=== PATIENT | female | born 1950 | race Caucasian/White ===

== ENCOUNTER 2018-10-31 09:05 | Inpatient (IN) | payer OTHER ==
[2018-10-31] MEDS ORDERED: Lidocaine 2% Inj (20ml) ONE (10:28)
[2018-10-31] MEDS ORDERED: Iohexol 350mgl/ml 50 ML ONE (10:30)
[2018-10-31] MEDS ORDERED: Iodixanol 320 MG/ML 100 ML BOTTLE IV ONE (10:30)
[2018-10-31] MEDS ORDERED: Iodixanol 320 MG/ML 200 ML BOTTLE IV ONE (10:30)
[2018-10-31] MEDS ORDERED: Phenylephrine 10 mg/ml Inj ONE (10:32)
[2018-10-31] MEDS ORDERED: Nitroglycerin 50mg in D5W 0 MG/0 ML BOTTLE IV ONE (10:32)
[2018-10-31] MEDS ORDERED: Midazolam 2 MG/2 ML VIAL ONE ×2 (10:50→10:53)
[2018-10-31] MEDS ORDERED: Sodium Chloride 0.9% 1,000 ML IV SCH (11:35)
[2018-10-31] MEDS ORDERED: DOPamine 400mg/250ml D5W 400 MG/250 ML BAG IV PRN ×2 (12:38→14:27)
[2018-10-31] MEDS ORDERED: Sodium Chloride 0.9% 1,000 ML IV STA (12:38)
[2018-10-31 12:59] LABS: BASO # 0.02 K/mm3 (0.0-2.0); BASO % 0.3 % (0.0-3.0); EOS # 0.1 (0.0-0.7); EOS % 1.5 % (1.5-5.0); GRAN # 4.34 (1.4-6.5); GRAN % 57.9 % (50.0-68.0); LYMPH # 2.6 (1.2-3.4); LYMPH % 35.2 % (22.0-35.0); MEAN CELL VOLUME 86.9 fl (80.0-105.0); MEAN CORPUSCULAR HEMOGLOBIN 28.7 pg (25.0-35.0); MEAN PLATELET VOLUME 8.7 fl (7.0-11.0); MONO # 0.4 (0.1-0.6); MONO % 5.1 % (1.0-6.0); RBC 3.83 10^6/uL (3.5-6.1); RED CELL DISTRIBUTION WIDTH 12.5 % (11.5-14.5); WHITE BLOOD COUNT 7.5 10^3/uL (4.5-11.0)
[2018-10-31 13:13] LABS: ALB/GLOB RATIO 1.1 (1.1-1.8); ALBUMIN 3.2 g/dL (3.0-4.8); ALT/SGPT 24 U/L (7-56); AST/SGOT 22 U/L (14-36); BLOOD UREA NITROGEN 10 mg/dL (7-21); GFR NON-AFRICAN AMERICAN > 60
--- NOTE | 2018-10-31 13:13 | PCM.RRT ---
VAT OVERHAULER Nurse Assessment - Situation Date: 10/31/18 Time VAT OVERHAULER was called: 12:24 VAT OVERHAULER Responder Arrival Time: 12:28 VAT OVERHAULER Location:: [address] [place] [address] Room Number: [id number] VAT OVERHAULER Reason for Call: Chest Pain, Bradycardia, Looks Sicker VAT OVERHAULER Called By: RN - IV IV Inserted during VAT OVERHAULER?: Yes IV Fluids Initiated During VAT OVERHAULER?: .9NS 1000 Bolus - Respiratory Oxygen Delivery Method: Nasal Cannula @L/min Oxygen Flow Rate: 2 Received Nebulizer Treatments:: No Was the Patient Ventilated with Bag/Mask 100% O2?: No Secretions Suctioned?: No Was the Patient Intubated?: No Was the Patient Placed on a Ventilator?: No - Medication Medications Administered During VAT OVERHAULER: Dopamine 2.5 mcg/kg/min - Diagnostic Test Ordered EKG: Yes Chest X-Ray: No CT Scan: No - Stat Labs Ordered VAT OVERHAULER Stat Labs Ordered: CBC, BMP, TROPONIN VAT OVERHAULER Other Labs Ordered: Mg/Phos CPR started during VAT OVERHAULER?: No - Vital Signs Vital Sign: Rapid Response Vital Sign Blood Pressure 67/38 Pulse Rate 39 Respiratory Rate 22 Temperature 98 F Oxygen Saturation 97 - Finger Stick Blood Glucose Finger Stick Blood Glucose: 114 - Sepsis Screen Part 1 Sepsis Screen Part 1: Hypotensive - Time VAT OVERHAULER Ended Time VAT OVERHAULER Ended: 12:52 - Vital Signs at end of VAT OVERHAULER Vital Signs at end of VAT OVERHAULER: Rapid Response End Vital Sign Blood Pressure 103/60 Pulse Rate 65 Respiratory Rate 18 Temperature 98.0 F - Recommendations Notifications: Attending Physician, Consultations I.Reason for VAT OVERHAULER - A) Acute Change in Patient: (Select all that apply): Acute change in heart rate less than 50 or greater than 120 - Neurological Status (Select all that apply): Alert, Responsive, Lethargic - Respiratory Oxygen Delivery Method: Nasal Cannula @L/min Oxygen Flow Rate: 2 - Constitutional Appears: Non-toxic, No Acute Distress - Head Head Exam: ATRAUMATIC, NORMAL INSPECTION, NORMOCEPHALIC - Eyes Eye Exam: EOMI, Normal appearance - Respiratory Exam Respiratory Exam: Clear to Ausculation Bilateral, NORMAL BREATHING PATTERN. absent: Prolonged Expiratory Phase, Rales, Rhonchi, Wheezes, Respiratory Distress, Stridor - Cardiovascular Exam Cardiovascular Exam: RRR, +S1, +S2 - GI/Abdominal Exam GI & Abdominal Exam: Soft, Normal Bowel Sounds. absent: Distended, Firm, Guarding, Tenderness Additional comments: no signs of hemmorhage at cath site - Neurological Exam Neurological Exam: Alert, Awake, Oriented x3 Plan - Assessment of Findings&Treatment Plan Elijah Reyes, PGY-1 VAT OVERHAULER note for Hospitalist Service S: 67 F s/p catheterization by Dr. Norman this morning. Placement of LYNNETTE to mid LAD. VAT OVERHAULER was called at 12:24 pm due to chest pain and sinus bradycardia on telemetry with HR into 40s with a sinus pause of ~2.7 seconds. Upon initial evaluation immediately thereafter, patient appeared uncomfortable. Patient reported chest pain and diffuse abdominal pain. Denies shortness of breath, leg pain, nausea, vomiting, headache and dizziness. O: BP 67/38, HR 42, 97% on 2 L NC RRR + S1S2 Lungs CTA b/l Randome glucose was 114. A&P: Repeat vitals showed improvement to 105/68, breathing 94% on room air, HR 65. Stat Troponin, CBC, CMP, EKG, 1 L bolus of NS were ordered as well as Dopamine 2.5 mcg/hr drip was ordered. Will continue to monitor. Patient is hemodynamically stable at this time. ICU was called and Dr. Sherine Crawley came to evaluate patient. Dr. Norman was contacted and was in agreement with orders as well. Patient seen, case reviewed and plan approved by Dr. Burdick.
[2018-10-31 13:23] LABS: TROPONIN I < 0.01 ng/mL
--- NOTE | 2018-10-31 13:23 | CARDCATH ---
PROCEDURE DATE: 10/31/2018 HISTORY: The patient is a 67-year-old woman with multiple cardiac risk factors including diabetes mellitus who presents with multivessel CAD. She underwent cardiac catheterization at [facility] with Dr. Lopez and found to have 80-90 percent stenoses in the borderline proximal/mid LAD. She was transferred here for PTCA. PROCEDURE: Coronary arteriography followed by PTCA and stent of an LAD. The right femoral artery was cannulated with 6-Albanian sheath and there were no complications. I performed moderate sedation which included the presence of an independent trained observer that assisted in monitoring the patient's level of consciousness and physiologic status. After administration of Versed and fentanyl, my intra service time was 30 minutes. The findings on catheterization revealed a right dominant circulation. The RCA revealed an eccentric 60 percent stenosis in its proximal/midportion. The LAD revealed a 90 percent stenosis just after the takeoff of the septal interactive producer. The patient was started on intravenous Angiomax on the fluoroscopic guide, the guiding catheter was placed in the ostium of the left main artery. An 0.014 ATW wire was used to cross the lesion. A 2.5 x 12 mm drug-eluting stent was placed and deployed at 14 ounces of pressure. After balloon deflation and removal, repeat coronary arteriography revealed an excellent result with no residual stenosis and ЕКАТЕРИНА III flow. Angio-Seal was used to close the femoral artery site. The patient tolerated the procedure well. In summary, the procedure was successful PTCA and stent of an LAD lesion with a drug-eluting stent. Cardiac catheterization reveals two-vessel CAD. Given these findings, the patient will need to remain on aspirin indefinitely and Plavix for at least a year and undergo a strict cardiac risk reduction program. If the patient is stable, she will be transferred back to [facility] under the care of Dr. Lopez at approximately 5 o'clock. Dorian Norman MD
[2018-10-31] MEDS: Sodium Chloride 0.9% 1,000 ML IV SCH ×2 (13:35→23:12)
--- NOTE | 2018-10-31 14:26 | CARD ---
APPROVED REPORT Date of service: 10/31/2018 EKG Measurement Heart [id number] <Conclusion> Normal sinus rhythm Normal ECG
[2018-10-31] MEDS ORDERED: Iohexol 350 MG/100 ML VIAL ONE (14:40)
--- NOTE | 2018-10-31 14:52 | PCM.RRT ---
REAL ESTATE ATTORNEY Nurse Assessment - Situation Date: 10/31/18 Time REAL ESTATE ATTORNEY was called: 14:14 REAL ESTATE ATTORNEY Responder Arrival Time: 14:18 REAL ESTATE ATTORNEY Location:: [address] [place] [address] Room Number: [id number] REAL ESTATE ATTORNEY Reason for Call: Chest Pain, Hypotension, Change in Mental Status, Looks Sicker REAL ESTATE ATTORNEY Called By: RN - IV IV Inserted during REAL ESTATE ATTORNEY?: No IV Fluids Initiated During REAL ESTATE ATTORNEY?: .9NS 1000 Bolus - Respiratory Oxygen Delivery Method: Nasal Cannula @L/min Oxygen Flow Rate: 2 Received Nebulizer Treatments:: No Was the Patient Ventilated with Bag/Mask 100% O2?: No Secretions Suctioned?: No Was the Patient Intubated?: No Was the Patient Placed on a Ventilator?: No - Medication Medications Administered During REAL ESTATE ATTORNEY: Dopamine 2mcg/kg/min - Diagnostic Test Ordered EKG: No Chest X-Ray: No CT Scan: Yes Other Diagnostic Test Ordered: AB/Pelvis R/O bleed - Stat Labs Ordered REAL ESTATE ATTORNEY Other Labs Ordered: Type & Cross CPR started during REAL ESTATE ATTORNEY?: No - Vital Signs Vital Sign: Rapid Response Vital Sign Blood Pressure 67/40 Pulse Rate 67 Respiratory Rate 22 Temperature 98.2 F Oxygen Saturation 97 - Finger Stick Blood Glucose Finger Stick Blood Glucose: 114 - Sepsis Screen Part 1 Sepsis Screen Part 1: Hypotensive - Time REAL ESTATE ATTORNEY Ended Time REAL ESTATE ATTORNEY Ended: 14:29 - Vital Signs at end of REAL ESTATE ATTORNEY Vital Signs at end of REAL ESTATE ATTORNEY: Rapid Response End Vital Sign Blood Pressure 123/74 Pulse Rate 134 Respiratory Rate 24 Temperature 98 F O2 Sat by Pulse Oximetry 95 - Recommendations Notifications: Attending Physician, Consultations - Respiratory Oxygen Delivery Method: Nasal Cannula @L/min Oxygen Flow Rate: 2 - Constitutional Appears: Non-toxic, No Acute Distress - Head Head Exam: ATRAUMATIC, NORMAL INSPECTION, NORMOCEPHALIC - Eyes Eye Exam: EOMI, Normal appearance - Respiratory Exam Respiratory Exam: Chest Wall Tenderness, Clear to Ausculation Bilateral, NORMAL BREATHING PATTERN. absent: Rales, Rhonchi, Wheezes - Cardiovascular Exam Cardiovascular Exam: Tachycardia, REGULAR RHYTHM, +S1, +S2 - GI/Abdominal Exam GI & Abdominal Exam: Firm (RLQ>LLQ), Guarding, Tenderness. absent: Rigid, Soft, Rebound - Neurological Exam Neurological Exam: Alert, Awake, Oriented x3 Plan - Assessment of Findings&Treatment Plan Elijah Reyes, PGY-1 REAL ESTATE ATTORNEY note for Hospitalist Service S: 67 F s/p catheterization by Dr. Norman this morning. Placement of LYNNETTE to mid LAD. REAL ESTATE ATTORNEY was called at 2:14 pm due to worsened abdominal pain and hypotension 64/47. Upon initial evaluation immediately thereafter, patient appeared uncomfortable. Patient denied chest pain but reported diffuse abdominal pain. Denies shortness of breath, leg pain, headache and dizziness. Patient states that abdominal pain has gotten worse. Patient was AAOx3. O: BP 64/47, HR 74, 97% on 2 L NC RRR + S1S2 Lungs CTA b/l Abdomen distended and tender RLQ>LLQ, ecchymosies in LLQ A&P: Stat Type and Cross and Atropine were ordered. Currently on dopamine drip. CT scan with IV contrast was ordered. Repeat vitals showed improvement to 132/86, breathing 94% on room air, HR 65. I accompanied patient down to CT scan and afterward directly to ICU for monitoring. Patient is hemodynamically stable at this time. Tachycardiac at [address] scan room. Patient set to be transferred to ICU for continued hemodynamic monitoring. Dr. Norman was contacted and was in agreement with orders as well. Patient seen, case reviewed and plan approved by Dr. Burdick.
--- NOTE | 2018-10-31 15:11 | CT ---
Date of service: 10/31/2018 PROCEDURE: CT Abdomen and Pelvis with contrast HISTORY: R/O bleed COMPARISON: None. TECHNIQUE: Contrast dose: 100 cc of Omni 350 Radiation dose: Total exam DLP = 460.5 mGy-cm. This CT exam was performed using one or more of the following dose reduction techniques: Automated exposure control, adjustment of the mA and/or kV according to patient size, and/or use of iterative reconstruction technique. FINDINGS: LOWER THORAX: Unremarkable. LIVER: Unremarkable. No gross lesion or ductal dilatation. GALLBLADDER AND BILE DUCTS: Gallstones PANCREAS: Unremarkable. No gross lesion or ductal dilatation. SPLEEN: Unremarkable. ADRENALS: Unremarkable. No mass. KIDNEYS AND URETERS: Unremarkable. No hydronephrosis. No solid mass. VASCULATURE: There is active contrast extravasation from the right femoral artery. This can be seen on coronal image 55 series 601 and on axial images 146 through 156 series 3. There is a large pelvic hematoma measuring 12 cm height by 10 cm AP x 6.5 cm wide. The bladder is displaced to the left. The hematoma does not extend into the retroperitoneal space above the level of the iliac crests. The findings were discussed with Dr. Norman at 3 p.m. BOWEL: Unremarkable. No obstruction. No gross mural thickening. APPENDIX: Normal appendix. PERITONEUM: Unremarkable. No free fluid. No free air. LYMPH NODES: Unremarkable. No enlarged lymph nodes. BLADDER: Unremarkable. REPRODUCTIVE: Unremarkable. BONES: No acute fracture. OTHER FINDINGS: None. IMPRESSION: Active hemorrhage from right femoral artery with large pelvic hematoma. There is no extension into the retroperitoneal space above the level of the iliac crests.
[2018-10-31] MEDS ORDERED: Morphine 4 mg/ml ISec IVP ONE (15:15)
[2018-10-31 15:38] LABS: HEMOGLOBIN 10.4 g/dL (12.0-16.0); MEAN CELL VOLUME 86.5 fl (80.0-105.0); MEAN CORPUSCULAR HEMOGLOBIN 28.7 pg (25.0-35.0); MEAN CORPUSCULAR HGB CONC 33.2 g/dl (31.0-37.0); MEAN PLATELET VOLUME 8.9 fl (7.0-11.0); RBC 3.62 10^6/uL (3.5-6.1); RED CELL DISTRIBUTION WIDTH 12.5 % (11.5-14.5)
--- NOTE | 2018-10-31 16:32 | CP.PCM.CON ---
<Harris Gracia L - Last Filed: 10/31/18 17:22> History of Present Illness - History of Present Illness History of Present Illness: Resident Consult Note for ICU Patient is a 67 year old female with past medical history of HTN, DM transferred from [facility] after a diagnostic cath for interventional procedure at [place]. Patient had a drug eluting stent placed in LAD by Dr. Norman and was being monitored on telemetry. Rapid response was called due to patient comp laining of chest pain and nausea. Patient was bradycardic in the 40s with SBP in the 60s. EKG was done which showed normal sinus rhythm. Dr. Norman was made aware and patient was started on low dose dopamine and given fluid bolus. Patient's pain subsided and vital signs improved. One hour later another rapid response was called, patient was hypotensive again complaining of pain in the right abdominal groin area. CT abd/pelvis was ordered which showed active hemorrhage from right femoral artery with large pelvic hematoma. Patient was admitted to ICU for monitoring and treatment. Currently, patient states that her pain is improved. She offers no other complaints at this time. Denies fevers, chills, headache, dizziness, chest pain, shortness of breath, diarrhea. PMH: HTN, DM PSH: Carpal tunnel surgery 6 months prior SHx: Denies tobacco use, ETOH use, retired nurses aid FHx: Father ( due to ND at 47 yo) Allergies: NKDA Home meds: Cozaar 100mg PO daily, Metoprolol sucinate 50 mg PO daily, Metformin 500 BID PO daily, Amlodipine 5 mg PO daily, Aspirin 81 mg PO daily, Zantac PRN PMD: Dr. Ortega Review of Systems - Review of Systems All systems: reviewed and no additional remarkable complaints except (as stated in HPI) Past Patient History - Past Medical History & Family History Past Medical History?: Yes - Past Social History Smoking Status: Never Smoked - CARDIAC Hx Hypertension: Yes - ENDOCRINE/METABOLIC Hx Diabetes Mellitus Type 2: Yes - MUSCULOSKELETAL/RHEUMATOLOGICAL Hx Falls: No - PSYCHIATRIC Hx Substance Use: No - SURGICAL HISTORY Hx Hysterectomy: Yes Other/Comment: right hand surgery 2007 - ANESTHESIA Hx Anesthesia: Yes Hx Anesthesia Reactions: No Hx Malignant Hyperthermia: No Meds Allergies/Adverse Reactions: Allergies Allergy/AdvReac Type Severity Reaction Status Date / Time No Known Allergies Allergy Unverified 10/29/18 14:15 - Medications Medications: Current Medications Sodium Chloride (Sodium Chloride 0.9%) 1,000 mls @ 100 mls/hr IV .Q10H FANY Last Admin: 10/31/18 13:35 Dose: 100 mls/hr Dopamine HCl/Dextrose (Dopamine 400mg/250ml D5w) 400 mg in 250 mls @ 4.915 mls/hr IV .Q24H PRN; Protocol PRN Reason: TITRATE PER MD ORDER Morphine Sulfate (Morphine) 4 mg IVP Q4H ONE Stop: 10/31/18 15:16 Physical Exam - Constitutional Appears: No Acute Distress - Head Exam Head Exam: ATRAUMATIC, NORMOCEPHALIC - Eye Exam Eye Exam: EOMI, Normal appearance, PERRL - ENT Exam ENT Exam: Mucous Membranes Dry - Neck Exam Neck exam: Positive for: Normal Inspection. Negative for: Lymphadenopathy, Tenderness, Thyromegaly - Respiratory Exam Respiratory Exam: Clear to Auscultation Bilateral, NORMAL BREATHING PATTERN. absent: Rales, Rhonchi, Wheezes, Respiratory Distress, Stridor - Cardiovascular Exam Cardiovascular Exam: REGULAR RHYTHM, +S1, +S2. absent: Systolic Murmur - GI/Abdominal Exam GI & Abdominal Exam: Distended, Guarding, Hypoactive Bowel Sounds, Soft, Tenderness. absent: Rebound, Rigid Additional comments: diffuse abdominal tenderness with hematoma in LLQ dressing C/D/I - Exam Additional comments: broussard in place - Extremities Exam Extremities exam: Positive for: normal capillary refill, pedal pulses present. Negative for: calf tenderness, pedal edema - Neurological Exam Neurological exam: Alert, CN II-XII Intact, Oriented x3 - Psychiatric Exam Psychiatric exam: Normal Affect, Normal Mood - Skin Skin Exam: Dry, Intact, Normal Color, Warm Results - Vital Signs Recent Vital Signs: Last Vital Signs Temp 98.3 F 10/31/18 16:20 Pulse 109 H 10/31/18 16:20 Resp 20 10/31/18 16:20 BP 120/77 10/31/18 16:20 Pulse Ox - Labs Result Diagrams: 10/31/18 15:35 10/31/18 12:50 Labs: Laboratory Results - last 24 hr 10/31/18 10/31/18 10/31/18 12:27 12:50 12:50 WBC 7.5 RBC 3.83 Hgb 11.0 L Hct 33.3 L MCV 86.9 MCH 28.7 MCHC 33.0 RDW 12.5 Plt Count 238 MPV 8.7 Gran % 57.9 Lymph % (Auto) 35.2 H Wetzel % (Auto) 5.1 Eos % (Auto) 1.5 Baso % (Auto) 0.3 Gran # 4.34 Lymph # (Auto) 2.6 Wetzel # (Auto) 0.4 Eos # (Auto) 0.1 Baso # (Auto) 0.02 Sodium 137 Potassium 4.0 Chloride 110 H Carbon Dioxide 24 Anion Gap 7 L BUN 10 Creatinine 0.6 L Est GFR ( Amer) > 60 Est GFR (Non-Af Amer) > 60 POC Glucose (mg/dL) 114 H Random Glucose 132 H Calcium 9.0 Phosphorus 3.5 Magnesium 1.9 Total Bilirubin 0.4 AST 22 ALT 24 Alkaline Phosphatase 60 Troponin I < 0.01 Total Protein 6.0 Albumin 3.2 Globulin 2.8 Albumin/Globulin Ratio 1.1 Blood Type Blood Type Confirm Antibody Screen Crossmatch BBK History Checked 10/31/18 10/31/18 10/31/18 14:18 14:23 14:23 WBC RBC Hgb Hct MCV MCH MCHC RDW Plt Count MPV Gran % Lymph % (Auto) Wetzel % (Auto) Eos % (Auto) Baso % (Auto) Gran # Lymph # (Auto) Wetzel # (Auto) Eos # (Auto) Baso # (Auto) Sodium Potassium Chloride Carbon Dioxide Anion Gap BUN Creatinine Est GFR ( Amer) Est GFR (Non-Af Amer) POC Glucose (mg/dL) 103 Random Glucose Calcium Phosphorus Magnesium Total Bilirubin AST ALT Alkaline Phosphatase Troponin I Total Protein Albumin Globulin Albumin/Globulin Ratio Blood Type Cancelled O POSITIVE Blood Type Confirm Antibody Screen Cancelled Negative Crossmatch See Detail BBK History Checked Cancelled No verified bt 10/31/18 10/31/18 14:45 15:35 WBC 10.0 D RBC 3.62 Hgb 10.4 L Hct 31.3 L MCV 86.5 MCH 28.7 MCHC 33.2 RDW 12.5 Plt Count 250 MPV 8.9 Gran % Lymph % (Auto) Wetzel % (Auto) Eos % (Auto) Baso % (Auto) Gran # Lymph # (Auto) Wetzel # (Auto) Eos # (Auto) Baso # (Auto) Sodium Potassium Chloride Carbon Dioxide Anion Gap BUN Creatinine Est GFR ( Amer) Est GFR (Non-Af Amer) POC Glucose (mg/dL) Random Glucose Calcium Phosphorus Magnesium Total Bilirubin AST ALT Alkaline Phosphatase Troponin I Total Protein Albumin Globulin Albumin/Globulin Ratio Blood Type Blood Type Confirm O POSITIVE Antibody Screen Crossmatch BBK History Checked Assessment & Plan - Assessment and Plan (Free Text) Assessment: Patient is a 67 year old female with past medical history of HTN, DM transferred from [facility], now s/p cath and admitted to ICU for management of bradycardia and hypotension. Found to have active hemorrhage from right femoral artery with large pelvic hematoma. Plan: Neuro: - AAOx3 - maintain normothermia Cardio: - s/p cardiac cath - CT abd/pelvis shows active hemorrhage from right femoral artery with large pelvic hematoma - dopamine drip - NS @ 100 ccs/hr - maintain MAP >65 - hold anticoagulation due to bleed Pulm: - saturating well on 2L NC - maintain SaO2>92% GI: - no active issues - no GI prophylaxis indicated at this time Heme: - s/p 1 unit pRBCs - monitor CBC Q4H - DVT prophylaxis contraindicated due to bleed Renal: - no active issues Endo: - no active issues ID: - afebrile, no leukocytosis Case was discussed and reviewed with attending physician, Dr. Misbah Gracia PGY-1 - Date & Time Date: 10/31/18 Time: 16:31 <Ever Crawley - Last Filed: 11/01/18 14:48> Meds - Medications Medications: Current Medications Aspirin (Aspirin Chewable) 81 mg PO DAILY [facility] Last Admin: 11/01/18 10:28 Dose: 81 mg Clopidogrel Bisulfate (Plavix) 75 mg PO DAILY [facility] Last Admin: 11/01/18 10:28 Dose: 75 mg Sodium Chloride (Sodium Chloride 0.9%) 1,000 mls @ 100 mls/hr IV .Q10H [facility] Last Admin: 11/01/18 07:00 Dose: 100 mls/hr Dopamine HCl/Dextrose (Dopamine 400mg/250ml D5w) 400 mg in 250 mls @ 4.915 mls/hr IV .Q24H PRN; Protocol PRN Reason: TITRATE PER MD ORDER Morphine Sulfate (Morphine) 2 mg IVP Q4H PRN PRN Reason: Pain, severe (8-10) Ondansetron HCl (Zofran Inj) 4 mg IVP Q6H PRN PRN Reason: Nausea/Vomiting Results - Vital Signs Recent Vital Signs: Last Vital Signs Temp 98.4 F 11/01/18 07:00 Pulse 77 11/01/18 08:50 Resp 19 11/01/18 08:50 BP 145/76 11/01/18 08:00 Pulse Ox 100 11/01/18 08:50 - Labs Result Diagrams: 11/01/18 05:30 11/01/18 05:30 Labs: Laboratory Results - last 24 hr 10/31/18 10/31/18 10/31/18 14:23 14:23 14:45 WBC RBC Hgb Hct MCV MCH MCHC RDW Plt Count MPV Gran % Lymph % (Auto) Wetzel % (Auto) Eos % (Auto) Baso % (Auto) Gran # Lymph # (Auto) Wetzel # (Auto) Eos # (Auto) Baso # (Auto) PT INR APTT Sodium Potassium Chloride Carbon Dioxide Anion Gap BUN Creatinine Est GFR ( Amer) Est GFR (Non-Af Amer) Random Glucose Calcium Total Bilirubin AST ALT Alkaline Phosphatase Total Protein Albumin Globulin Albumin/Globulin Ratio Blood Type Cancelled O POSITIVE Blood Type Confirm O POSITIVE Antibody Screen Cancelled Negative Crossmatch See Detail BBK History Checked Cancelled No verified bt 10/31/18 10/31/18 10/31/18 15:35 19:52 23:25 WBC 10.0 D 12.3 H D 10.4 RBC 3.62 4.09 3.78 Hgb 10.4 L 11.9 L 11.1 L Hct 31.3 L 36.0 33.1 L MCV 86.5 88.0 87.6 MCH 28.7 29.1 29.4 MCHC 33.2 33.1 33.5 RDW 12.5 13.0 13.0 Plt Count 250 244 221 MPV 8.9 8.9 9.1 Gran % Lymph % (Auto) Wetzel % (Auto) Eos % (Auto) Baso % (Auto) Gran # Lymph # (Auto) Wetzel # (Auto) Eos # (Auto) Baso # (Auto) PT INR APTT Sodium Potassium Chloride Carbon Dioxide Anion Gap BUN Creatinine Est GFR ( Amer) Est GFR (Non-Af Amer) Random Glucose Calcium Total Bilirubin AST ALT Alkaline Phosphatase Total Protein Albumin Globulin Albumin/Globulin Ratio Blood Type Blood Type Confirm Antibody Screen Crossmatch BBK History Checked 10/31/18 11/01/18 11/01/18 23:25 05:30 05:30 WBC 10.3 RBC 3.73 Hgb 10.8 L Hct 32.5 L MCV 87.1 MCH 29.0 MCHC 33.2 RDW 13.0 Plt Count 205 MPV 9.2 Gran % 68.6 H Lymph % (Auto) 20.9 L Wetzel % (Auto) 9.6 H Eos % (Auto) 0.7 L Baso % (Auto) 0.2 Gran # 7.05 H Lymph # (Auto) 2.1 Wetzel # (Auto) 1.0 H Eos # (Auto) 0.1 Baso # (Auto) 0.02 PT 11.7 INR 1.03 APTT 29.5 Sodium 139 Potassium 3.8 Chloride 112 H Carbon Dioxide 23 Anion Gap 7 L BUN 12 Creatinine 0.6 L Est GFR ( Amer) > 60 Est GFR (Non-Af Amer) > 60 Random Glucose 93 Calcium 8.7 Total Bilirubin 0.6 AST 27 ALT 27 Alkaline Phosphatase 54 Total Protein 5.6 L Albumin 2.9 L Globulin 2.7 Albumin/Globulin Ratio 1.1 Blood Type Blood Type Confirm Antibody Screen Crossmatch BBK History Checked Addendum Addendum: 10/31/18 16:47 MICU Attending Addendum for 10/31: Patient seen and examined at bedside on 10/31; Case discussed on rounds with housestaff; Agree resident with note above with the following additions/exceptions: 67Fwith HTN, DM transferred from [facility] for ACS s/p cath with stent to LAD complicated by pain at cath insertion site. Further evaluation with CT shows extrav of blood from right fem artery resulting in large hematoma. Dr Norman on board managing Dr. Foss (IR) at bedside applying dressing to tamponade / compress site Will f/u CBC q 4 hours Transfuse if HB drops significantly or below 8 Will need to cont dual antiplat as per cardio given stent placement Rest of care as above Ever Crawley MD Pulmonary Critical Care and Sleep Medicine
[2018-10-31] MEDS ORDERED: Morphine 2 mg/ml ISec IVP PRN (18:07)
--- NOTE | 2018-10-31 19:11 | CP.PCM.CON ---
<Davida Sunshine - Last Filed: 10/31/18 19:31> History of Present Illness - History of Present Illness History of Present Illness: Surgery Consult Note for Dr. Stubbs Consulted for: Abdominal hematoma 67 F w/ PMHx significant for hypertension and DM who was transferred to [facility] from [facility] today for a PTCA with drug eluting stent placement in LAD by cardiology. Patient was admitted to telemetry for further monitoring. Rapid response was called for chest pain, sinus bradycardia with HR in the 40s and hypotension. Patient was given a fluid bolus and started on dopamine drip, after which chest pain resolved and hypotension improved. Another [employer] was called again this afternoon for RLQ abdominal and right groin pain. CT A/P was obtained and pt was transferred to ICU when hemodynamically stabilized. CT A/P resulted active hemorrhage from right femoral artery with large pelvic hematoma, no extension into the retroperitoneal space above the level of the iliac crests. Blood transfusion was started, patient became hemodynamically stable, dopamine drip was discontinued, and surgery consult was placed. At time of examination, patient is hemodynamically stable with the unit of PRBC's currently tranfusing. She states that abdominal pain is improved since onset, reports one episode of nausea but no vomiting, not currently nauseated. Denies any chest pain, SOB, palpitations, or back pain. She denies fever, chills, cough, congestion, NORRIS, dizziness. No other acute complaints at this time. PMH: HTN, DM, CAD PSH: PTCA with drug eluting stent placement in LAD (10/31/2018), hysterectomy, carpal tunnel (2018) ALL: NKDA SocialHx: Denies tobacco, alcohol, and recreational drug use. FH: Father- [place] at 45y/o () Review of Systems - Review of Systems All systems: reviewed and no additional remarkable complaints except (as per HPI) Past Patient History - Past Medical History & Family History Past Medical History?: Yes Past Family History: Reviewed and not pertinent - Past Social History Smoking Status: Never Smoked Alcohol: None Drugs: Denies Home Situation {Lives}: With Family - CARDIAC Hx Hypertension: Yes - ENDOCRINE/METABOLIC Hx Diabetes Mellitus Type 2: Yes - MUSCULOSKELETAL/RHEUMATOLOGICAL Hx Falls: No - PSYCHIATRIC Hx Substance Use: No - SURGICAL HISTORY Hx Hysterectomy: Yes Other/Comment: right hand surgery 2007 - ANESTHESIA Hx Anesthesia: Yes Hx Anesthesia Reactions: No Hx Malignant Hyperthermia: No Meds Allergies/Adverse Reactions: Allergies Allergy/AdvReac Type Severity Reaction Status Date / Time No Known Allergies Allergy Unverified 10/29/18 14:15 - Medications Medications: Current Medications Sodium Chloride (Sodium Chloride 0.9%) 1,000 mls @ 100 mls/hr IV .Q10H FANY Last Admin: 10/31/18 13:35 Dose: 100 mls/hr Dopamine HCl/Dextrose (Dopamine 400mg/250ml D5w) 400 mg in 250 mls @ 4.915 mls/hr IV .Q24H PRN; Protocol PRN Reason: TITRATE PER MD ORDER Morphine Sulfate (Morphine) 2 mg IVP Q4H PRN PRN Reason: Pain, severe (8-10) Ondansetron HCl (Zofran Inj) 4 mg IVP Q6H PRN PRN Reason: Nausea/Vomiting Physical Exam - Constitutional Appears: Well, Non-toxic, No Acute Distress - Head Exam Head Exam: ATRAUMATIC, NORMOCEPHALIC - Eye Exam Eye Exam: Normal appearance. absent: Conjunctival injection, Scleral icterus - ENT Exam ENT Exam: Mucous Membranes Moist, Normal Oropharynx - Respiratory Exam Respiratory Exam: NORMAL BREATHING PATTERN (on NC supplemental O2). absent: Accessory Muscle Use, Respiratory Distress - Cardiovascular Exam Cardiovascular Exam: RRR - GI/Abdominal Exam GI & Abdominal Exam: Distended (moderately), Soft, Tenderness (severe RLQ tenderness). absent: Guarding, Rebound Additional comments: RLQ fullness No finn-umbilical or flank ecchymosis - Extremities Exam Extremities exam: Positive for: pedal pulses present. Negative for: calf tenderness, pedal edema Additional comments: right groin with pressure dressing intact with no saturation, no surrounding drainage or erythema - Neurological Exam Neurological exam: Alert, Oriented x3 - Psychiatric Exam Psychiatric exam: Normal Affect, Normal Mood - Skin Skin Exam: Dry, Normal Color, Warm Results - Vital Signs Recent Vital Signs: Last Vital Signs Temp 98.4 F 10/31/18 17:23 Pulse 92 H 10/31/18 19:05 Resp 19 10/31/18 19:05 BP 122/78 10/31/18 19:05 Pulse Ox 100 10/31/18 19:05 - Labs Result Diagrams: 10/31/18 15:35 10/31/18 12:50 Labs: Laboratory Results - last 24 hr 10/31/18 10/31/18 10/31/18 12:27 12:50 12:50 WBC 7.5 RBC 3.83 Hgb 11.0 L Hct 33.3 L MCV 86.9 MCH 28.7 MCHC 33.0 RDW 12.5 Plt Count 238 MPV 8.7 Gran % 57.9 Lymph % (Auto) 35.2 H Gray % (Auto) 5.1 Eos % (Auto) 1.5 Baso % (Auto) 0.3 Gran # 4.34 Lymph # (Auto) 2.6 Gray # (Auto) 0.4 Eos # (Auto) 0.1 Baso # (Auto) 0.02 Sodium 137 Potassium 4.0 Chloride 110 H Carbon Dioxide 24 Anion Gap 7 L BUN 10 Creatinine 0.6 L Est GFR ( Amer) > 60 Est GFR (Non-Af Amer) > 60 POC Glucose (mg/dL) 114 H Random Glucose 132 H Calcium 9.0 Phosphorus 3.5 Magnesium 1.9 Total Bilirubin 0.4 AST 22 ALT 24 Alkaline Phosphatase 60 Troponin I < 0.01 Total Protein 6.0 Albumin 3.2 Globulin 2.8 Albumin/Globulin Ratio 1.1 Blood Type Blood Type Confirm Antibody Screen Crossmatch BBK History Checked 10/31/18 10/31/18 10/31/18 14:18 14:23 14:23 WBC RBC Hgb Hct MCV MCH MCHC RDW Plt Count MPV Gran % Lymph % (Auto) Gray % (Auto) Eos % (Auto) Baso % (Auto) Gran # Lymph # (Auto) Gray # (Auto) Eos # (Auto) Baso # (Auto) Sodium Potassium Chloride Carbon Dioxide Anion Gap BUN Creatinine Est GFR ( Amer) Est GFR (Non-Af Amer) POC Glucose (mg/dL) 103 Random Glucose Calcium Phosphorus Magnesium Total Bilirubin AST ALT Alkaline Phosphatase Troponin I Total Protein Albumin Globulin Albumin/Globulin Ratio Blood Type Cancelled O POSITIVE Blood Type Confirm Antibody Screen Cancelled Negative Crossmatch See Detail BBK History Checked Cancelled No verified bt 10/31/18 10/31/18 14:45 15:35 WBC 10.0 D RBC 3.62 Hgb 10.4 L Hct 31.3 L MCV 86.5 MCH 28.7 MCHC 33.2 RDW 12.5 Plt Count 250 MPV 8.9 Gran % Lymph % (Auto) Gray % (Auto) Eos % (Auto) Baso % (Auto) Gran # Lymph # (Auto) Gray # (Auto) Eos # (Auto) Baso # (Auto) Sodium Potassium Chloride Carbon Dioxide Anion Gap BUN Creatinine Est GFR ( Amer) Est GFR (Non-Af Amer) POC Glucose (mg/dL) Random Glucose Calcium Phosphorus Magnesium Total Bilirubin AST ALT Alkaline Phosphatase Troponin I Total Protein Albumin Globulin Albumin/Globulin Ratio Blood Type Blood Type Confirm O POSITIVE Antibody Screen Crossmatch BBK History Checked Assessment & Plan - Assessment and Plan (Free Text) Assessment: 67F s/p percutaneous cardiac catheterization with placement of drug eluting stent in the LAD, with post-procedure intra-abdominal hemorrhage, currently stable Plan: Repeat serial H/H Monitor BP and HR closely Monitor UOP closely Administer PRBC as needed PRN pain and nausea medication NPO Bed rest F/U cardiology and ICU recommendations No indication for surgical intervention at this time but will monitor very closely Discussed with Dr. Enoc Sunshine, PGY2 <Anurag Stubbs - Last Filed: 11/05/18 07:55> Results - Vital Signs Recent Vital Signs: Last Vital Signs Temp 99.1 F 11/04/18 08:59 Pulse 80 11/04/18 09:04 Resp 19 11/04/18 08:00 BP 139/76 11/04/18 09:04 Pulse Ox 97 11/04/18 08:00 - Labs Result Diagrams: 11/04/18 05:20 11/04/18 05:20 Assessment & Plan - Assessment and Plan (Free Text) Plan: Patient was seen, examined and evaluated by me. I agree with resident's assessment and plan.
[2018-10-31 19:54] LABS: HEMOGLOBIN 11.9 g/dL (12.0-16.0); MEAN CORPUSCULAR HEMOGLOBIN 29.1 pg (25.0-35.0); MEAN CORPUSCULAR HGB CONC 33.1 g/dl (31.0-37.0); MEAN PLATELET VOLUME 8.9 fl (7.0-11.0); RBC 4.09 10^6/uL (3.5-6.1); WHITE BLOOD COUNT 12.3 10^3/uL (4.5-11.0)
[2018-10-31 23:15] VITALS: BMI 29.2
[2018-10-31] MEDS ORDERED: Influenza Vaccine 60 mcg/0.5 mL SYR (4YR UP) IM ONE (23:15)
[2018-10-31] MEDS ORDERED: Pneumococcal 23-Valent Vaccine IM ONE (23:15)
[2018-11-01 00:05] LABS: INR 1.03; PARTIAL THROMBOPLASTIN TIME 29.5 Seconds (25.1-36.5); PROTHROMBIN TIME 11.7 SECONDS (9.4-12.5)
[2018-11-01 00:11] LABS: HEMOGLOBIN 11.1 g/dL (12.0-16.0); MEAN CELL VOLUME 87.6 fl (80.0-105.0); MEAN CORPUSCULAR HEMOGLOBIN 29.4 pg (25.0-35.0); MEAN CORPUSCULAR HGB CONC 33.5 g/dl (31.0-37.0); MEAN PLATELET VOLUME 9.1 fl (7.0-11.0); RBC 3.78 10^6/uL (3.5-6.1); WHITE BLOOD COUNT 10.4 10^3/uL (4.5-11.0)
[2018-11-01] MEDS: Sodium Chloride 0.9% 1,000 ML IV SCH ×2 (07:00→23:00)
[2018-11-01 07:07] LABS: BASO # 0.02 K/mm3 (0.0-2.0); BASO % 0.2 % (0.0-3.0); EOS # 0.1 (0.0-0.7); EOS % 0.7 % (1.5-5.0); GRAN # 7.05 (1.4-6.5); GRAN % 68.6 % (50.0-68.0); HEMOGLOBIN 10.8 g/dL (12.0-16.0); LYMPH # 2.1 (1.2-3.4); LYMPH % 20.9 % (22.0-35.0); MEAN CELL VOLUME 87.1 fl (80.0-105.0); MEAN CORPUSCULAR HGB CONC 33.2 g/dl (31.0-37.0); MEAN PLATELET VOLUME 9.2 fl (7.0-11.0); MONO % 9.6 % (1.0-6.0); RBC 3.73 10^6/uL (3.5-6.1); WHITE BLOOD COUNT 10.3 10^3/uL (4.5-11.0)
[2018-11-01 07:17] LABS: ALB/GLOB RATIO 1.1 (1.1-1.8); ALBUMIN 2.9 g/dL (3.0-4.8); ALT/SGPT 27 U/L (7-56); AST/SGOT 27 U/L (14-36); BLOOD UREA NITROGEN 12 mg/dL (7-21); CALCIUM 8.7 mg/dL (8.4-10.5); GFR NON-AFRICAN AMERICAN > 60
--- NOTE | 2018-11-01 09:30 | CP.PCM.PN ---
<Terrance Ndiaye - Last Filed: 11/01/18 09:25> Subjective - Date & Time of Evaluation Date of Evaluation: 11/01/18 Time of Evaluation: 09:25 - Subjective Subjective: Surgery Progress Note- Dr. Stubbs Patient seen and examined at bedside. patient is s/p perc cardiac cath access from Right fem complicated by intra-abdominal hemorrhage. Transfused 1u PRBC and pressure dressing applied to left fem. Repeat Hgb 11.9 from 10.4. patient states abdominal pain is improving. denies nausea, vomiting, fevers chills. In ICU AAOx3, moving all 4 extremities, GCS 15, currently hemodynamically normal. Objective - Vital Signs/Intake and Output Vital Signs (last 24 hours): Temp Pulse Resp BP Pulse Ox 98.4 F 77 19 145/76 100 11/01/18 07:00 11/01/18 08:50 11/01/18 08:50 11/01/18 08:00 11/01/18 08:50 Intake and Output: 11/01/18 11/01/18 06:59 18:59 Intake Total 1620 Output Total 750 Balance 870 - Medications Medications: Current Medications Aspirin (Aspirin Chewable) 81 mg PO DAILY FANY Clopidogrel Bisulfate (Plavix) 75 mg PO DAILY [facility] Sodium Chloride (Sodium Chloride 0.9%) 1,000 mls @ 100 mls/hr IV .Q10H FANY Last Admin: 10/31/18 23:12 Dose: 100 mls/hr Dopamine HCl/Dextrose (Dopamine 400mg/250ml D5w) 400 mg in 250 mls @ 4.915 mls/hr IV .Q24H PRN; Protocol PRN Reason: TITRATE PER MD ORDER Morphine Sulfate (Morphine) 2 mg IVP Q4H PRN PRN Reason: Pain, severe (8-10) Ondansetron HCl (Zofran Inj) 4 mg IVP Q6H PRN PRN Reason: Nausea/Vomiting - Labs Labs: 11/01/18 05:30 11/01/18 05:30 PT 11.7 SECONDS (9.4-12.5) 10/31/18 23:25 INR 1.03 10/31/18 23:25 APTT 29.5 Seconds (25.1-36.5) 10/31/18 23:25 - Constitutional Appears: Non-toxic, No Acute Distress - Head Exam Head Exam: ATRAUMATIC - Eye Exam Eye Exam: EOMI. absent: Scleral icterus - ENT Exam ENT Exam: Mucous Membranes Moist - Respiratory Exam Respiratory Exam: NORMAL BREATHING PATTERN. absent: Accessory Muscle Use, Respiratory Distress - Cardiovascular Exam Cardiovascular Exam: +S1, +S2. absent: Bradycardia, Tachycardia - GI/Abdominal Exam GI & Abdominal Exam: Distended, Soft, Tenderness. absent: Firm, Guarding, Rigid Additional comments: mildly distended. No new signs of ecchymosis or erythema pressure dressing applied to right groin - Neurological Exam Neurological Exam: Alert, Awake, Oriented x3 - Psychiatric Exam Psychiatric exam: Normal Affect - Skin Skin Exam: Intact, Warm Assessment and Plan - Assessment and Plan (Free Text) Assessment: 67F s/p perc cardiac cath w/ placement of drug eluting stend in the LAD, complicated w/ intra-abdominal hematoma; s/p 1u PRBC and hemodynamically normal Plan: - trend H/H - continued hemodynamic monitoring - transfuse PRN - serial abd exams - will continue to observe - further recs per Dr. Stubbs surgical attending [facility] PGY2 <Anurag Stubbs - Last Filed: 11/05/18 07:53> Objective - Vital Signs/Intake and Output Vital Signs (last 24 hours): Temp Pulse Resp BP Pulse Ox 99.1 F 80 19 139/76 97 11/04/18 08:59 11/04/18 09:04 11/04/18 08:00 11/04/18 09:04 11/04/18 08:00 - Labs Labs: 11/04/18 05:20 11/04/18 05:20 PT 11.7 SECONDS (9.4-12.5) 10/31/18 23:25 INR 1.03 10/31/18 23:25 APTT 29.5 Seconds (25.1-36.5) 10/31/18 23:25 Assessment and Plan - Assessment and Plan (Free Text) Plan: Patient was seen, examined and evaluated by me. I agree with resident's assessment and plan.
--- NOTE | 2018-11-01 12:29 | CP.CCUPN ---
<Dhruv Duran - Last Filed: 11/01/18 12:25> CCU Subjective - Physician Review Subjective (Free Text): Dhruv Duran, PGY1 ICU Progress Note for Dr. Crawley Patient was seen and examined at bedside this morning. Vital signs stable, afebrile overnight. Patient is AAOx3. She endorses right groin/abdominal pain after the cardiac cath procedure. She says her pain has improved since yesterday, rates it as a dull pain /10. Denies n/v/d, cp, sob, frequency/urgency/dysuria, blurry vision, and headaches. No adverse overnight events. A full 12 point ROS was conducted and unremarkable except as stated above. CCU Objective - Vital Signs / Intake & Output Vital Signs (Last 4 hours): Vital Signs Pulse Resp Pulse Ox 11/01/18 08:50 77 19 100 11/01/18 08:40 91 H 100 11/01/18 08:30 102 H 24 98 Intake and Output (Last 8hrs): Intake & Output 10/31/18 11/01/18 11/01/18 22:59 06:59 14:59 Intake Total 420 1200 Output Total 450 300 Balance -30 900 Weight 65.529 kg 67.222 kg Intake: IV 1200 Left Hand 1200 Blood Product 0 Red Blood Cells Cpd As1 0 Lr Unit [id number] Other 420 Red Blood Cells Cpd As1 20 Lr Unit [id number] Output: Urine 450 300 Urethral (Lawrence) 450 300 Other: Voiding Method Indwelling Catheter # Bowel Movements 0 - Physical Exam Head: Positive for: Atraumatic, Normocephalic Pupils: Positive for: PERRL Extroacular Muscles: Positive for: EOMI Conjunctiva: Positive for: Normal Mouth: Positive for: Moist Mucous Membranes Respiratory/Chest: Positive for: Clear to Auscultation, Good Air Exchange. Negative for: Respiratory Distress, Wheezes, Rales, Retracting, Rhonchi Cardiovascular: Positive for: Regular Rate and Rhythm, Normal S1, S2 Abdomen: Positive for: Tenderness (Tenderness to palpation of the abdomen at the RLQ - site of hematoma. Pressure dressing is intact. ), Other (Right sided femoral/pelvic hematoma palpated.). Negative for: Rebound, Guarding Upper Extremity: Positive for: Normal Inspection, Normal ROM. Negative for: Cyanosis, Edema Lower Extremity: Positive for: Normal Inspection, NORMAL PULSES. Negative for: Edema, Tenderness Neurological: Positive for: GCS=15, CN II-XII Intact, Speech Normal Skin: Positive for: Warm, Dry, Normal Color Psychiatric: Positive for: Alert, Oriented x 3 - Medications Active Medications: Active Medications Generic Name Dose Route Start Last Admin Trade Name Freq PRN Reason Stop Dose Admin Aspirin 81 mg 11/01/18 10:00 11/01/18 10:28 Aspirin Chewable PO 81 mg DAILY FANY Administration Clopidogrel Bisulfate 75 mg 11/01/18 10:00 11/01/18 10:28 Plavix PO 75 mg DAILY FANY Administration Sodium Chloride 1,000 mls @ 100 mls/hr 10/31/18 11:35 11/01/18 07:00 Sodium Chloride 0.9% IV 100 mls/hr .Q10H FANY Administration Dopamine HCl/Dextrose 400 mg in 250 mls @ 4.915 mls/hr 10/31/18 14:27 Dopamine 400mg/250ml D5w IV .Q24H PRN TITRATE PER MD ORDER Protocol 2 MCG/KG/MIN Morphine Sulfate 2 mg 10/31/18 18:07 Morphine IVP Q4H PRN Pain, severe (8-10) Ondansetron HCl 4 mg 10/31/18 19:10 Zofran Inj IVP Q6H PRN Nausea/Vomiting - Patient Studies Lab Studies: Lab Studies 11/01/18 11/01/18 10/31/18 Range/Units 05:30 05:30 23:25 WBC 10.3 (4.5-11.0) 10^3/uL RBC 3.73 (3.5-6.1) 10^6/uL Hgb 10.8 L (12.0-16.0) g/dL Hct 32.5 L (36.0-48.0) % MCV 87.1 (80.0-105.0) fl MCH 29.0 (25.0-35.0) pg MCHC 33.2 (31.0-37.0) g/dl RDW 13.0 (11.5-14.5) % Plt Count 205 (120.0-450.0) 10^3/uL MPV 9.2 (7.0-11.0) fl Gran % 68.6 H (50.0-68.0) % Lymph % (Auto) 20.9 L (22.0-35.0) % Wilkin % (Auto) 9.6 H (1.0-6.0) % Eos % (Auto) 0.7 L (1.5-5.0) % Baso % (Auto) 0.2 (0.0-3.0) % Gran # 7.05 H (1.4-6.5) Lymph # (Auto) 2.1 (1.2-3.4) Wilkin # (Auto) 1.0 H (0.1-0.6) Eos # (Auto) 0.1 (0.0-0.7) Baso # (Auto) 0.02 (0.0-2.0) K/mm3 PT 11.7 (9.4-12.5) SECONDS INR 1.03 APTT 29.5 (25.1-36.5) Seconds Sodium 139 (132-148) mmol/L Potassium 3.8 (3.6-5.0) mmol/L Chloride 112 H (98-107) mmol/L Carbon Dioxide 23 (21-33) mmol/L Anion Gap 7 L (10-20) BUN 12 (7-21) mg/dL Creatinine 0.6 L (0.7-1.2) mg/dl Est GFR ( Amer) > 60 Est GFR (Non-Af Amer) > 60 POC Glucose (mg/dL) (65-110) mg/dL Random Glucose 93 (70-110) mg/dL Calcium 8.7 (8.4-10.5) mg/dL Phosphorus (2.5-4.5) mg/dL Magnesium (1.7-2.2) mg/dL Total Bilirubin 0.6 (0.2-1.3) mg/dL AST 27 (14-36) U/L ALT 27 (7-56) U/L Alkaline Phosphatase 54 (38-126) U/L Troponin I ng/mL Total Protein 5.6 L (5.8-8.3) g/dL Albumin 2.9 L (3.0-4.8) g/dL Globulin 2.7 gm/dL Albumin/Globulin Ratio 1.1 (1.1-1.8) Blood Type Blood Type Confirm Antibody Screen Crossmatch BBK History Checked 10/31/18 10/31/18 10/31/18 Range/Units 23:25 19:52 15:35 WBC 10.4 12.3 H D 10.0 D (4.5-11.0) 10^3/uL RBC 3.78 4.09 3.62 (3.5-6.1) 10^6/uL Hgb 11.1 L 11.9 L 10.4 L (12.0-16.0) g/dL Hct 33.1 L 36.0 31.3 L (36.0-48.0) % MCV 87.6 88.0 86.5 (80.0-105.0) fl MCH 29.4 29.1 28.7 (25.0-35.0) pg MCHC 33.5 33.1 33.2 (31.0-37.0) g/dl RDW 13.0 13.0 12.5 (11.5-14.5) % Plt Count 221 244 250 (120.0-450.0) 10^3/uL MPV 9.1 8.9 8.9 (7.0-11.0) fl Gran % (50.0-68.0) % Lymph % (Auto) (22.0-35.0) % Wilkin % (Auto) (1.0-6.0) % Eos % (Auto) (1.5-5.0) % Baso % (Auto) (0.0-3.0) % Gran # (1.4-6.5) Lymph # (Auto) (1.2-3.4) Wilkin # (Auto) (0.1-0.6) Eos # (Auto) (0.0-0.7) Baso # (Auto) (0.0-2.0) K/mm3 PT (9.4-12.5) SECONDS INR APTT (25.1-36.5) Seconds Sodium (132-148) mmol/L Potassium (3.6-5.0) mmol/L Chloride (98-107) mmol/L Carbon Dioxide (21-33) mmol/L Anion Gap (10-20) BUN (7-21) mg/dL Creatinine (0.7-1.2) mg/dl Est GFR ( Amer) Est GFR (Non-Af Amer) POC Glucose (mg/dL) (65-110) mg/dL Random Glucose (70-110) mg/dL Calcium (8.4-10.5) mg/dL Phosphorus (2.5-4.5) mg/dL Magnesium (1.7-2.2) mg/dL Total Bilirubin (0.2-1.3) mg/dL AST (14-36) U/L ALT (7-56) U/L Alkaline Phosphatase (38-126) U/L Troponin I ng/mL Total Protein (5.8-8.3) g/dL Albumin (3.0-4.8) g/dL Globulin gm/dL Albumin/Globulin Ratio (1.1-1.8) Blood Type Blood Type Confirm Antibody Screen Crossmatch BBK History Checked 10/31/18 10/31/18 10/31/18 Range/Units 14:45 14:23 14:23 WBC (4.5-11.0) 10^3/uL RBC (3.5-6.1) 10^6/uL Hgb (12.0-16.0) g/dL Hct (36.0-48.0) % MCV (80.0-105.0) fl MCH (25.0-35.0) pg MCHC (31.0-37.0) g/dl RDW (11.5-14.5) % Plt Count (120.0-450.0) 10^3/uL MPV (7.0-11.0) fl Gran % (50.0-68.0) % Lymph % (Auto) (22.0-35.0) % Wilkin % (Auto) (1.0-6.0) % Eos % (Auto) (1.5-5.0) % Baso % (Auto) (0.0-3.0) % Gran # (1.4-6.5) Lymph # (Auto) (1.2-3.4) Wilkin # (Auto) (0.1-0.6) Eos # (Auto) (0.0-0.7) Baso # (Auto) (0.0-2.0) K/mm3 PT (9.4-12.5) SECONDS INR APTT (25.1-36.5) Seconds Sodium (132-148) mmol/L Potassium (3.6-5.0) mmol/L Chloride (98-107) mmol/L Carbon Dioxide (21-33) mmol/L Anion Gap (10-20) BUN (7-21) mg/dL Creatinine (0.7-1.2) mg/dl Est GFR ( Amer) Est GFR (Non-Af Amer) POC Glucose (mg/dL) (65-110) mg/dL Random Glucose (70-110) mg/dL Calcium (8.4-10.5) mg/dL Phosphorus (2.5-4.5) mg/dL Magnesium (1.7-2.2) mg/dL Total Bilirubin (0.2-1.3) mg/dL AST (14-36) U/L ALT (7-56) U/L Alkaline Phosphatase (38-126) U/L Troponin I ng/mL Total Protein (5.8-8.3) g/dL Albumin (3.0-4.8) g/dL Globulin gm/dL Albumin/Globulin Ratio (1.1-1.8) Blood Type O POSITIVE Cancelled Blood Type Confirm O POSITIVE Antibody Screen Negative Cancelled Crossmatch See Detail BBK History Checked No verified bt Cancelled 10/31/18 10/31/18 10/31/18 Range/Units 14:18 12:50 12:50 WBC 7.5 (4.5-11.0) 10^3/uL RBC 3.83 (3.5-6.1) 10^6/uL Hgb 11.0 L (12.0-16.0) g/dL Hct 33.3 L (36.0-48.0) % MCV 86.9 (80.0-105.0) fl MCH 28.7 (25.0-35.0) pg MCHC 33.0 (31.0-37.0) g/dl RDW 12.5 (11.5-14.5) % Plt Count 238 (120.0-450.0) 10^3/uL MPV 8.7 (7.0-11.0) fl Gran % 57.9 (50.0-68.0) % Lymph % (Auto) 35.2 H (22.0-35.0) % Wilkin % (Auto) 5.1 (1.0-6.0) % Eos % (Auto) 1.5 (1.5-5.0) % Baso % (Auto) 0.3 (0.0-3.0) % Gran # 4.34 (1.4-6.5) Lymph # (Auto) 2.6 (1.2-3.4) Wilkin # (Auto) 0.4 (0.1-0.6) Eos # (Auto) 0.1 (0.0-0.7) Baso # (Auto) 0.02 (0.0-2.0) K/mm3 PT (9.4-12.5) SECONDS INR APTT (25.1-36.5) Seconds Sodium 137 (132-148) mmol/L Potassium 4.0 (3.6-5.0) mmol/L Chloride 110 H (98-107) mmol/L Carbon Dioxide 24 (21-33) mmol/L Anion Gap 7 L (10-20) BUN 10 (7-21) mg/dL Creatinine 0.6 L (0.7-1.2) mg/dl Est GFR ( Amer) > 60 Est GFR (Non-Af Amer) > 60 POC Glucose (mg/dL) 103 (65-110) mg/dL Random Glucose 132 H (70-110) mg/dL Calcium 9.0 (8.4-10.5) mg/dL Phosphorus 3.5 (2.5-4.5) mg/dL Magnesium 1.9 (1.7-2.2) mg/dL Total Bilirubin 0.4 (0.2-1.3) mg/dL AST 22 (14-36) U/L ALT 24 (7-56) U/L Alkaline Phosphatase 60 (38-126) U/L Troponin I < 0.01 ng/mL Total Protein 6.0 (5.8-8.3) g/dL Albumin 3.2 (3.0-4.8) g/dL Globulin 2.8 gm/dL Albumin/Globulin Ratio 1.1 (1.1-1.8) Blood Type Blood Type Confirm Antibody Screen Crossmatch BBK History Checked 10/31/18 Range/Units 12:27 WBC (4.5-11.0) 10^3/uL RBC (3.5-6.1) 10^6/uL Hgb (12.0-16.0) g/dL Hct (36.0-48.0) % MCV (80.0-105.0) fl MCH (25.0-35.0) pg MCHC (31.0-37.0) g/dl RDW (11.5-14.5) % Plt Count (120.0-450.0) 10^3/uL MPV (7.0-11.0) fl Gran % (50.0-68.0) % Lymph % (Auto) (22.0-35.0) % Wilkin % (Auto) (1.0-6.0) % Eos % (Auto) (1.5-5.0) % Baso % (Auto) (0.0-3.0) % Gran # (1.4-6.5) Lymph # (Auto) (1.2-3.4) Wilkin # (Auto) (0.1-0.6) Eos # (Auto) (0.0-0.7) Baso # (Auto) (0.0-2.0) K/mm3 PT (9.4-12.5) SECONDS INR APTT (25.1-36.5) Seconds Sodium (132-148) mmol/L Potassium (3.6-5.0) mmol/L Chloride (98-107) mmol/L Carbon Dioxide (21-33) mmol/L Anion Gap (10-20) BUN (7-21) mg/dL Creatinine (0.7-1.2) mg/dl Est GFR ( Amer) Est GFR (Non-Af Amer) POC Glucose (mg/dL) 114 H (65-110) mg/dL Random Glucose (70-110) mg/dL Calcium (8.4-10.5) mg/dL Phosphorus (2.5-4.5) mg/dL Magnesium (1.7-2.2) mg/dL Total Bilirubin (0.2-1.3) mg/dL AST (14-36) U/L ALT (7-56) U/L Alkaline Phosphatase (38-126) U/L Troponin I ng/mL Total Protein (5.8-8.3) g/dL Albumin (3.0-4.8) g/dL Globulin gm/dL Albumin/Globulin Ratio (1.1-1.8) Blood Type Blood Type Confirm Antibody Screen Crossmatch BBK History Checked Laboratory Results - last 24 hr 10/31/18 10/31/18 10/31/18 12:27 12:50 12:50 WBC 7.5 RBC 3.83 Hgb 11.0 L Hct 33.3 L MCV 86.9 MCH 28.7 MCHC 33.0 RDW 12.5 Plt Count 238 MPV 8.7 Gran % 57.9 Lymph % (Auto) 35.2 H Wilkin % (Auto) 5.1 Eos % (Auto) 1.5 Baso % (Auto) 0.3 Gran # 4.34 Lymph # (Auto) 2.6 Wilkin # (Auto) 0.4 Eos # (Auto) 0.1 Baso # (Auto) 0.02 PT INR APTT Sodium 137 Potassium 4.0 Chloride 110 H Carbon Dioxide 24 Anion Gap 7 L BUN 10 Creatinine 0.6 L Est GFR ( Amer) > 60 Est GFR (Non-Af Amer) > 60 POC Glucose (mg/dL) 114 H Random Glucose 132 H Calcium 9.0 Phosphorus 3.5 Magnesium 1.9 Total Bilirubin 0.4 AST 22 ALT 24 Alkaline Phosphatase 60 Troponin I < 0.01 Total Protein 6.0 Albumin 3.2 Globulin 2.8 Albumin/Globulin Ratio 1.1 Blood Type Blood Type Confirm Antibody Screen Crossmatch BBK History Checked 10/31/18 10/31/18 10/31/18 14:18 14:23 14:23 WBC RBC Hgb Hct MCV MCH MCHC RDW Plt Count MPV Gran % Lymph % (Auto) Wilkin % (Auto) Eos % (Auto) Baso % (Auto) Gran # Lymph # (Auto) Wilkin # (Auto) Eos # (Auto) Baso # (Auto) PT INR APTT Sodium Potassium Chloride Carbon Dioxide Anion Gap BUN Creatinine Est GFR ( Amer) Est GFR (Non-Af Amer) POC Glucose (mg/dL) 103 Random Glucose Calcium Phosphorus Magnesium Total Bilirubin AST ALT Alkaline Phosphatase Troponin I Total Protein Albumin Globulin Albumin/Globulin Ratio Blood Type Cancelled O POSITIVE Blood Type Confirm Antibody Screen Cancelled Negative Crossmatch See Detail BBK History Checked Cancelled No verified bt 10/31/18 10/31/18 10/31/18 14:45 15:35 19:52 WBC 10.0 D 12.3 H D RBC 3.62 4.09 Hgb 10.4 L 11.9 L Hct 31.3 L 36.0 MCV 86.5 88.0 MCH 28.7 29.1 MCHC 33.2 33.1 RDW 12.5 13.0 Plt Count 250 244 MPV 8.9 8.9 Gran % Lymph % (Auto) Wilkin % (Auto) Eos % (Auto) Baso % (Auto) Gran # Lymph # (Auto) Wilkin # (Auto) Eos # (Auto) Baso # (Auto) PT INR APTT Sodium Potassium Chloride Carbon Dioxide Anion Gap BUN Creatinine Est GFR ( Amer) Est GFR (Non-Af Amer) POC Glucose (mg/dL) Random Glucose Calcium Phosphorus Magnesium Total Bilirubin AST ALT Alkaline Phosphatase Troponin I Total Protein Albumin Globulin Albumin/Globulin Ratio Blood Type Blood Type Confirm O POSITIVE Antibody Screen Crossmatch BBK History Checked 10/31/18 10/31/18 11/01/18 23:25 23:25 05:30 WBC 10.4 RBC 3.78 Hgb 11.1 L Hct 33.1 L MCV 87.6 MCH 29.4 MCHC 33.5 RDW 13.0 Plt Count 221 MPV 9.1 Gran % Lymph % (Auto) Wilkin % (Auto) Eos % (Auto) Baso % (Auto) Gran # Lymph # (Auto) Wilkin # (Auto) Eos # (Auto) Baso # (Auto) PT 11.7 INR 1.03 APTT 29.5 Sodium 139 Potassium 3.8 Chloride 112 H Carbon Dioxide 23 Anion Gap 7 L BUN 12 Creatinine 0.6 L Est GFR ( Amer) > 60 Est GFR (Non-Af Amer) > 60 POC Glucose (mg/dL) Random Glucose 93 Calcium 8.7 Phosphorus Magnesium Total Bilirubin 0.6 AST 27 ALT 27 Alkaline Phosphatase 54 Troponin I Total Protein 5.6 L Albumin 2.9 L Globulin 2.7 Albumin/Globulin Ratio 1.1 Blood Type Blood Type Confirm Antibody Screen Crossmatch BBK History Checked 11/01/18 05:30 WBC 10.3 RBC 3.73 Hgb 10.8 L Hct 32.5 L MCV 87.1 MCH 29.0 MCHC 33.2 RDW 13.0 Plt Count 205 MPV 9.2 Gran % 68.6 H Lymph % (Auto) 20.9 L Wilkin % (Auto) 9.6 H Eos % (Auto) 0.7 L Baso % (Auto) 0.2 Gran # 7.05 H Lymph # (Auto) 2.1 Wilkin # (Auto) 1.0 H Eos # (Auto) 0.1 Baso # (Auto) 0.02 PT INR APTT Sodium Potassium Chloride Carbon Dioxide Anion Gap BUN Creatinine Est GFR ( Amer) Est GFR (Non-Af Amer) POC Glucose (mg/dL) Random Glucose Calcium Phosphorus Magnesium Total Bilirubin AST ALT Alkaline Phosphatase Troponin I Total Protein Albumin Globulin Albumin/Globulin Ratio Blood Type Blood Type Confirm Antibody Screen Crossmatch BBK History Checked EKG/Cardiology Studies: Cardiology / EKG Studies 10/31/18 12:36 EKG [ELECTROCARDIOGRAM] Stat Comment: Reason For Exam: RAPID RESPONSE 10/31/18 14:21 EKG [ELECTROCARDIOGRAM] Stat Comment: Reason For Exam: RAPID RESPONSE Review of Systems - Review of Systems All systems: reviewed and no additional remarkable complaints except (as per HPI) Critical Care Progress Note - Nutrition Nutrition: Nutrition Category Date Time Status Heart Healthy Diet [DIET] Diets 11/01/18 Breakfast Active Assessment/Plan - Assessment and Plan (Free Text) Assessment: Patient is a 67 year old female with past medical history of HTN, DM transferred from [facility], now s/p cath and admitted to ICU for management of bradycardia and hypotension, which is now resolved. She was found to have active hemorrhage from right femoral artery with large pelvic hematoma after cardiac cath procedure. Patient is s/p x1 pRBC transfusion and is currently stable and being monitored. Plan: Neuro: - AAOx3 - maintain normothermia Cardio: - s/p cardiac cath with post-op complication of right femoral/pelvic hematoma - may resume aspirin/plavix due to new drug eluting stent placement at the LAD - s/p x1 pRBC - Hgb responded appropriately. Current Hgb is 10.8 with no signs of external bleeding on exam. - As per surgery team, no intervention at this time for the hematoma. - CT abd/pelvis: active hemorrhage from right femoral artery with large pelvic hematoma - dopamine drip currently off - NS @ 100 ccs/hr - maintain MAP >65 - Cardiology is on the case. Recs appreciated. Pulm: - saturating well on 2L NC - maintain SaO2>92% GI: - no active issues - no GI prophylaxis indicated at this time Heme: - s/p 1 unit pRBCs - Hgb responded appropriately - continue to monitor H/H Renal: - no active issues at this time - Lawrence is in place - Monitor ins/outs Endo: - no active issues ID: - afebrile, no leukocytosis Dispo: Continue to monitor patient in the ICU. Follow up recommendations from cardiology; will transfer to telemetry based on their approval. Case was discussed and reviewed with attending physician, Dr. Crawley <Ever Crawley - Last Filed: 11/01/18 14:49> CCU Objective - Vital Signs / Intake & Output Intake and Output (Last 8hrs): Intake & Output 10/31/18 11/01/18 11/01/18 22:59 06:59 14:59 Intake Total 420 1200 Output Total 450 300 Balance -30 900 Weight 65.529 kg 67.222 kg Intake: IV 1200 Left Hand 1200 Blood Product 0 Red Blood Cells Cpd As1 0 Lr Unit [id number] Other 420 Red Blood Cells Cpd As1 20 Lr Unit [id number] Output: Urine 450 300 Urethral (Lawrence) 450 300 Other: Voiding Method Indwelling Catheter # Bowel Movements 0 - Medications Active Medications: Active Medications Generic Name Dose Route Start Last Admin Trade Name Freq PRN Reason Stop Dose Admin Aspirin 81 mg 11/01/18 10:00 11/01/18 10:28 Aspirin Chewable PO 81 mg DAILY FANY Administration Clopidogrel Bisulfate 75 mg 11/01/18 10:00 11/01/18 10:28 Plavix PO 75 mg DAILY FANY Administration Sodium Chloride 1,000 mls @ 100 mls/hr 10/31/18 11:35 11/01/18 07:00 Sodium Chloride 0.9% IV 100 mls/hr .Q10H FANY Administration Dopamine HCl/Dextrose 400 mg in 250 mls @ 4.915 mls/hr 10/31/18 14:27 Dopamine 400mg/250ml D5w IV .Q24H PRN TITRATE PER MD ORDER Protocol 2 MCG/KG/MIN Morphine Sulfate 2 mg 10/31/18 18:07 Morphine IVP Q4H PRN Pain, severe (8-10) Ondansetron HCl 4 mg 10/31/18 19:10 Zofran Inj IVP Q6H PRN Nausea/Vomiting - Patient Studies Lab Studies: Lab Studies 11/01/18 11/01/18 10/31/18 Range/Units 05:30 05:30 23:25 WBC 10.3 (4.5-11.0) 10^3/uL RBC 3.73 (3.5-6.1) 10^6/uL Hgb 10.8 L (12.0-16.0) g/dL Hct 32.5 L (36.0-48.0) % MCV 87.1 (80.0-105.0) fl MCH 29.0 (25.0-35.0) pg MCHC 33.2 (31.0-37.0) g/dl RDW 13.0 (11.5-14.5) % Plt Count 205 (120.0-450.0) 10^3/uL MPV 9.2 (7.0-11.0) fl Gran % 68.6 H (50.0-68.0) % Lymph % (Auto) 20.9 L (22.0-35.0) % Wilkin % (Auto) 9.6 H (1.0-6.0) % Eos % (Auto) 0.7 L (1.5-5.0) % Baso % (Auto) 0.2 (0.0-3.0) % Gran # 7.05 H (1.4-6.5) Lymph # (Auto) 2.1 (1.2-3.4) Wilkin # (Auto) 1.0 H (0.1-0.6) Eos # (Auto) 0.1 (0.0-0.7) Baso # (Auto) 0.02 (0.0-2.0) K/mm3 PT 11.7 (9.4-12.5) SECONDS INR 1.03 APTT 29.5 (25.1-36.5) Seconds Sodium 139 (132-148) mmol/L Potassium 3.8 (3.6-5.0) mmol/L Chloride 112 H (98-107) mmol/L Carbon Dioxide 23 (21-33) mmol/L Anion Gap 7 L (10-20) BUN 12 (7-21) mg/dL Creatinine 0.6 L (0.7-1.2) mg/dl Est GFR ( Amer) > 60 Est GFR (Non-Af Amer) > 60 Random Glucose 93 (70-110) mg/dL Calcium 8.7 (8.4-10.5) mg/dL Total Bilirubin 0.6 (0.2-1.3) mg/dL AST 27 (14-36) U/L ALT 27 (7-56) U/L Alkaline Phosphatase 54 (38-126) U/L Total Protein 5.6 L (5.8-8.3) g/dL Albumin 2.9 L (3.0-4.8) g/dL Globulin 2.7 gm/dL Albumin/Globulin Ratio 1.1 (1.1-1.8) Blood Type Blood Type Confirm Antibody Screen Crossmatch BBK History Checked 10/31/18 10/31/18 10/31/18 Range/Units 23:25 19:52 15:35 WBC 10.4 12.3 H D 10.0 D (4.5-11.0) 10^3/uL RBC 3.78 4.09 3.62 (3.5-6.1) 10^6/uL Hgb 11.1 L 11.9 L 10.4 L (12.0-16.0) g/dL Hct 33.1 L 36.0 31.3 L (36.0-48.0) % MCV 87.6 88.0 86.5 (80.0-105.0) fl MCH 29.4 29.1 28.7 (25.0-35.0) pg MCHC 33.5 33.1 33.2 (31.0-37.0) g/dl RDW 13.0 13.0 12.5 (11.5-14.5) % Plt Count 221 244 250 (120.0-450.0) 10^3/uL MPV 9.1 8.9 8.9 (7.0-11.0) fl Gran % (50.0-68.0) % Lymph % (Auto) (22.0-35.0) % Wilkin % (Auto) (1.0-6.0) % Eos % (Auto) (1.5-5.0) % Baso % (Auto) (0.0-3.0) % Gran # (1.4-6.5) Lymph # (Auto) (1.2-3.4) Wilkin # (Auto) (0.1-0.6) Eos # (Auto) (0.0-0.7) Baso # (Auto) (0.0-2.0) K/mm3 PT (9.4-12.5) SECONDS INR APTT (25.1-36.5) Seconds Sodium (132-148) mmol/L Potassium (3.6-5.0) mmol/L Chloride (98-107) mmol/L Carbon Dioxide (21-33) mmol/L Anion Gap (10-20) BUN (7-21) mg/dL Creatinine (0.7-1.2) mg/dl Est GFR ( Amer) Est GFR (Non-Af Amer) Random Glucose (70-110) mg/dL Calcium (8.4-10.5) mg/dL Total Bilirubin (0.2-1.3) mg/dL AST (14-36) U/L ALT (7-56) U/L Alkaline Phosphatase (38-126) U/L Total Protein (5.8-8.3) g/dL Albumin (3.0-4.8) g/dL Globulin gm/dL Albumin/Globulin Ratio (1.1-1.8) Blood Type Blood Type Confirm Antibody Screen Crossmatch BBK History Checked 10/31/18 10/31/18 10/31/18 Range/Units 14:45 14:23 14:23 WBC (4.5-11.0) 10^3/uL RBC (3.5-6.1) 10^6/uL Hgb (12.0-16.0) g/dL Hct (36.0-48.0) % MCV (80.0-105.0) fl MCH (25.0-35.0) pg MCHC (31.0-37.0) g/dl RDW (11.5-14.5) % Plt Count (120.0-450.0) 10^3/uL MPV (7.0-11.0) fl Gran % (50.0-68.0) % Lymph % (Auto) (22.0-35.0) % Wilkin % (Auto) (1.0-6.0) % Eos % (Auto) (1.5-5.0) % Baso % (Auto) (0.0-3.0) % Gran # (1.4-6.5) Lymph # (Auto) (1.2-3.4) Wilkin # (Auto) (0.1-0.6) Eos # (Auto) (0.0-0.7) Baso # (Auto) (0.0-2.0) K/mm3 PT (9.4-12.5) SECONDS INR APTT (25.1-36.5) Seconds Sodium (132-148) mmol/L Potassium (3.6-5.0) mmol/L Chloride (98-107) mmol/L Carbon Dioxide (21-33) mmol/L Anion Gap (10-20) BUN (7-21) mg/dL Creatinine (0.7-1.2) mg/dl Est GFR ( Amer) Est GFR (Non-Af Amer) Random Glucose (70-110) mg/dL Calcium (8.4-10.5) mg/dL Total Bilirubin (0.2-1.3) mg/dL AST (14-36) U/L ALT (7-56) U/L Alkaline Phosphatase (38-126) U/L Total Protein (5.8-8.3) g/dL Albumin (3.0-4.8) g/dL Globulin gm/dL Albumin/Globulin Ratio (1.1-1.8) Blood Type O POSITIVE Cancelled Blood Type Confirm O POSITIVE Antibody Screen Negative Cancelled Crossmatch See Detail BBK History Checked No verified bt Cancelled Laboratory Results - last 24 hr 10/31/18 10/31/18 10/31/18 14:23 14:23 14:45 WBC RBC Hgb Hct MCV MCH MCHC RDW Plt Count MPV Gran % Lymph % (Auto) Wilkin % (Auto) Eos % (Auto) Baso % (Auto) Gran # Lymph # (Auto) Wilkin # (Auto) Eos # (Auto) Baso # (Auto) PT INR APTT Sodium Potassium Chloride Carbon Dioxide Anion Gap BUN Creatinine Est GFR ( Amer) Est GFR (Non-Af Amer) Random Glucose Calcium Total Bilirubin AST ALT Alkaline Phosphatase Total Protein Albumin Globulin Albumin/Globulin Ratio Blood Type Cancelled O POSITIVE Blood Type Confirm O POSITIVE Antibody Screen Cancelled Negative Crossmatch See Detail BBK History Checked Cancelled No verified bt 12/05/1310/31/18 10/31/18 15:35 19:52 23:25 WBC 10.0 D 12.3 H D 10.4 RBC 3.62 4.09 3.78 Hgb 10.4 L 11.9 L 11.1 L Hct 31.3 L 36.0 33.1 L MCV 86.5 88.0 87.6 MCH 28.7 29.1 29.4 MCHC 33.2 33.1 33.5 RDW 12.5 13.0 13.0 Plt Count 250 244 221 MPV 8.9 8.9 9.1 Gran % Lymph % (Auto) Wilkin % (Auto) Eos % (Auto) Baso % (Auto) Gran # Lymph # (Auto) Wilkin # (Auto) Eos # (Auto) Baso # (Auto) PT INR APTT Sodium Potassium Chloride Carbon Dioxide Anion Gap BUN Creatinine Est GFR ( Amer) Est GFR (Non-Af Amer) Random Glucose Calcium Total Bilirubin AST ALT Alkaline Phosphatase Total Protein Albumin Globulin Albumin/Globulin Ratio Blood Type Blood Type Confirm Antibody Screen Crossmatch BBK History Checked 10/31/18 11/01/18 11/01/18 23:25 05:30 05:30 WBC 10.3 RBC 3.73 Hgb 10.8 L Hct 32.5 L MCV 87.1 MCH 29.0 MCHC 33.2 RDW 13.0 Plt Count 205 MPV 9.2 Gran % 68.6 H Lymph % (Auto) 20.9 L Wilkin % (Auto) 9.6 H Eos % (Auto) 0.7 L Baso % (Auto) 0.2 Gran # 7.05 H Lymph # (Auto) 2.1 Wilkin # (Auto) 1.0 H Eos # (Auto) 0.1 Baso # (Auto) 0.02 PT 11.7 INR 1.03 APTT 29.5 Sodium 139 Potassium 3.8 Chloride 112 H Carbon Dioxide 23 Anion Gap 7 L BUN 12 Creatinine 0.6 L Est GFR ( Amer) > 60 Est GFR (Non-Af Amer) > 60 Random Glucose 93 Calcium 8.7 Total Bilirubin 0.6 AST 27 ALT 27 Alkaline Phosphatase 54 Total Protein 5.6 L Albumin 2.9 L Globulin 2.7 Albumin/Globulin Ratio 1.1 Blood Type Blood Type Confirm Antibody Screen Crossmatch BBK History Checked EKG/Cardiology Studies: Cardiology / EKG Studies 10/31/18 14:21 EKG [ELECTROCARDIOGRAM] Stat Comment: Reason For Exam: RAPID RESPONSE Critical Care Progress Note - Nutrition Nutrition: Nutrition Category Date Time Status Heart Healthy Diet [DIET] Diets 11/01/18 Breakfast Active Addendum Addendum: 11/01/18 14:48 MICU Attending Addendum: Patient seen and examined; Case discussed on rounds with housestaff; Agree resident with note above with the following additions/exceptions: 67Fwith HTN, DM transferred from [facility] for ACS s/p cath with stent to LAD complicated by pain at cath insertion site. Further evaluation with CT shows extrav of blood from right fem artery resulting in large hematoma. Dr Norman on board managing; Tranfused 1 unit PRBC last night HB stable today; hemodynamically stable no chest pain bleeding likely stopped however may need another scan (US?) Await cardio eval today for possible transfer out of ICU Transfuse if HB drops significantly or below 8 Will need to cont dual antiplat as per cardio given stent placement Rest of care as above Ever Crawley MD Pulmonary Critical Care and Sleep Medicine
[2018-11-01 15:34] LABS: BASO # 0.01 K/mm3 (0.0-2.0); BASO % 0.1 % (0.0-3.0); EOS # 0.2 (0.0-0.7); EOS % 1.7 % (1.5-5.0); GRAN # 6.53 (1.4-6.5); GRAN % 61.7 % (50.0-68.0); HEMOGLOBIN 10.5 g/dL (12.0-16.0); LYMPH # 2.7 (1.2-3.4); LYMPH % 25.5 % (22.0-35.0); MEAN CELL VOLUME 87.1 fl (80.0-105.0); MEAN CORPUSCULAR HEMOGLOBIN 28.8 pg (25.0-35.0); MEAN PLATELET VOLUME 8.9 fl (7.0-11.0); MONO # 1.2 (0.1-0.6); RBC 3.65 10^6/uL (3.5-6.1); RED CELL DISTRIBUTION WIDTH 12.9 % (11.5-14.5); WHITE BLOOD COUNT 10.6 10^3/uL (4.5-11.0)
--- NOTE | 2018-11-01 18:11 | PN ---
DATE: 11/01/[address] Dorian Norman. SUBJECTIVE: The patient underwent LAD stent with a drug-eluting stent yesterday. Subsequently, developed groin bleeding and CT scan revealed active hemorrhage from the right femoral artery with a large pelvic hematoma. There is no extension into the retroperitoneal space. The patient received 1 unit of packed RBC transfusion. She denies any chest pain. PHYSICAL EXAMINATION VITAL SIGNS: Blood pressure 145/76, heart rate 102, temperature 98.4. HEENT: Pale conjunctivae. CHEST: Clear. HEART: S1, S2 regular. ABDOMEN: Ecchymosis noted in the left lower quadrant of the anterior abdominal wound and a large bandage is applied to the entire right groin area encircling the whole pelvis. LABORATORY DATA: CBC: Hemoglobin and hematocrit are 10.8 and 32.5. White count and platelet count are within normal limits. SMA-7: Sodium 139, potassium 3.8, chloride 112, CO2 of 23, glucose 93, BUN 12, creatinine 0.6. ASSESSMENT: 1. Status post left anterior descending artery stenting. 2. Large pelvic hematoma with no retroperitoneal extension, requiring 1 unit of packed red blood cell transfusion. RECOMMENDATIONS: Continue current aspirin and Plavix as well as normal saline infusion mechanical compression. The patient needs to stay in the ICU for at least one more day. Quirino Duncan MD
[2018-11-01 18:39] LABS: HEMOGLOBIN 11.7 g/dL (12.0-16.0); MEAN CELL VOLUME 87.2 fl (80.0-105.0); MEAN CORPUSCULAR HEMOGLOBIN 28.9 pg (25.0-35.0); MEAN CORPUSCULAR HGB CONC 33.1 g/dl (31.0-37.0); RBC 4.05 10^6/uL (3.5-6.1); WHITE BLOOD COUNT 9.1 10^3/uL (4.5-11.0)
[2018-11-02 06:07] LABS: HEMOGLOBIN 9.9 g/dL (12.0-16.0); MEAN CORPUSCULAR HEMOGLOBIN 28.6 pg (25.0-35.0); MEAN CORPUSCULAR HGB CONC 32.9 g/dl (31.0-37.0); RBC 3.46 10^6/uL (3.5-6.1); RED CELL DISTRIBUTION WIDTH 12.8 % (11.5-14.5); WHITE BLOOD COUNT 8.2 10^3/uL (4.5-11.0)
--- NOTE | 2018-11-02 07:59 | CP.PCM.PN ---
<LaNayeli manley - Last Filed: 11/02/18 08:24> Subjective - Date & Time of Evaluation Date of Evaluation: 11/02/18 Time of Evaluation: 07:30 - Subjective Subjective: General surgery progress note for Dr. Stubbs Patient seen and examined this am at bedside. ADANO per nursing. She continues to c/o right sided groin and flank pain worsened with movement but states that ti si improved from yesterday. She otherwise denies NORRIS, CP, SOB, n/v, f/c and extremity pain/weakness. Objective - Vital Signs/Intake and Output Vital Signs (last 24 hours): Temp Pulse Resp BP Pulse Ox 98.3 F 84 18 113/60 94 L 11/02/18 04:00 11/02/18 06:00 11/02/18 04:00 11/02/18 01:00 11/02/18 04:00 Intake and Output: 11/02/18 11/02/18 06:59 18:59 Intake Total 1200 Output Total 2000 Balance -800 - Medications Medications: Current Medications Amlodipine Besylate (Norvasc) 5 mg PO DAILY [facility] Last Admin: 11/01/18 16:27 Dose: 5 mg Aspirin (Aspirin Chewable) 81 mg PO DAILY [facility] Last Admin: 11/01/18 10:28 Dose: 81 mg Clopidogrel Bisulfate (Plavix) 75 mg PO DAILY [facility] Last Admin: 11/01/18 10:28 Dose: 75 mg Sodium Chloride (Sodium Chloride 0.9%) 1,000 mls @ 100 mls/hr IV .Q10H [facility] Last Admin: 11/01/18 23:00 Dose: 100 mls/hr Dopamine HCl/Dextrose (Dopamine 400mg/250ml D5w) 400 mg in 250 mls @ 4.915 mls/hr IV .Q24H PRN; Protocol PRN Reason: TITRATE PER MD ORDER Morphine Sulfate (Morphine) 2 mg IVP Q4H PRN PRN Reason: Pain, severe (8-10) Ondansetron HCl (Zofran Inj) 4 mg IVP Q6H PRN PRN Reason: Nausea/Vomiting - Labs Labs: 11/02/18 05:30 11/01/18 05:30 PT 11.7 SECONDS (9.4-12.5) 12/06/18 23:25 INR 1.03 10/31/18 23:25 APTT 29.5 Seconds (25.1-36.5) 10/31/18 23:25 - Constitutional Appears: Well, Non-toxic, No Acute Distress - Head Exam Head Exam: ATRAUMATIC, NORMOCEPHALIC - Eye Exam Eye Exam: EOMI - ENT Exam ENT Exam: Mucous Membranes Moist - Respiratory Exam Respiratory Exam: NORMAL BREATHING PATTERN - Cardiovascular Exam Cardiovascular Exam: REGULAR RHYTHM. absent: Tachycardia - GI/Abdominal Exam GI & Abdominal Exam: Soft, Tenderness (RLQ). absent: Distended, Firm Additional comments: no flank ecchymosis - Extremities Exam Extremities Exam: Normal Capillary Refill. absent: Calf Tenderness, Pedal Edema Additional comments: Palpable DP and PT pulses, palpable femoral pulses - Back Exam Back Exam: vertebral tenderness Additional comments: no ecchymosis to flanks - Neurological Exam Neurological Exam: Alert, Awake, Oriented x3 - Psychiatric Exam Psychiatric exam: Normal Affect, Normal Mood - Skin Skin Exam: Dry, Intact, Warm Assessment and Plan - Assessment and Plan (Free Text) Assessment: 67F s/p perc cardiac cath w/ placement of drug eluting stent in the LAD, complicated w/ intra-abdominal hematoma Plan: - trend H/H - continued hemodynamic monitoring - transfuse PRN - serial abd exams - no surgical intervention aneeded at this time - will continue to observe - discussed with Dr. Amee La, PGY 1 <Anurag Stubbs - Last Filed: 11/05/18 07:52> Objective - Vital Signs/Intake and Output Vital Signs (last 24 hours): Temp Pulse Resp BP Pulse Ox 99.1 F 80 19 139/76 97 11/04/18 08:59 11/04/18 09:04 11/04/18 08:00 11/04/18 09:04 11/04/18 08:00 - Labs Labs: 11/04/18 05:20 11/04/18 05:20 PT 11.7 SECONDS (9.4-12.5) 10/31/18 23:25 INR 1.03 10/31/18 23:25 APTT 29.5 Seconds (25.1-36.5) 10/31/18 23:25 Assessment and Plan - Assessment and Plan (Free Text) Plan: Patient was seen, examined and evaluated by me. I agree with resident's assessment and plan.
--- NOTE | 2018-11-02 11:12 | PN ---
DATE: 11/02/2018 SUBJECTIVE: The patient is resting in bed, O2 via nasal cannula. No complaints of shortness of breath, cough, wheezing, chest congestion. No chest pain. No nausea or vomiting. The patient is still complains of some discomfort and her lower abdomen, abdomen. Still continues to have a hematoma in the pelvic area and intra-abdominal area as well, post cardiac catheterization. The patient's hemoglobin has been stable. PHYSICAL EXAMINATION: VITAL SIGNS: Her temperature is 98.3, her pulse is 84, respirations are 18, BP is 113/60. SKIN: Warm and dry. HEENT: Head is atraumatic and normocephalic. Eyes reactive to light. Ears, nose and throat seemed to be within normal limits. NECK: Supple. No JVD. No thyroid enlargement, no lymph nodes. HEART: Has regular rate and rhythm. Normal S1, S2. LUNGS: Reveal good breath sounds bilaterally. ABDOMEN: Soft. Decreased bowel sounds. There is some tenderness in the lower abdominal region. GENITALIA: Deferred. RECTAL: Deferred. MUSCULOSKELETAL: No joint deformities. EXTREMITIES: Reveal trace lower extremity edema. NEUROLOGIC: The patient seemed to be grossly intact. LABORATORY DATA: As far as her laboratories are concerned, her white count is 8.2, hemoglobin is 9.9, hematocrit is 30.1 with platelets of 213,000. The patient's sodium is 139, potassium 3.8, chloride 112, CO2 of 23 with a BUN of 12 and creatinine 0.6, glucose of 112. IMPRESSION: As far as my impression, this patient presented with coronary artery disease, was transferred from another hospital for cardiac catheterization. The patient had catheterization and left anterior descending stent was placed. Postprocedure, she developed hematoma located and pelvic as well as intra-abdominal area. She has history of hypertension, diabetes as well as anemia. PLAN: As far as our plan, the patient has been closely observed in the ICU, hemoglobin is being followed. She continues to be on aspirin as well as morphine p.r.n. She is on Norvasc as well as Plavix. The patient is getting IV normal saline and p.r.n. Zofran. She is on dopamine as well. We will continue to observe closely and follow along with the other consultants and the primary care doctor. Chandrakant Orosco MD
[2018-11-02 12:53] LABS: HEMOGLOBIN 10.6 g/dL (12.0-16.0); MEAN CELL VOLUME 86.5 fl (80.0-105.0); MEAN CORPUSCULAR HEMOGLOBIN 29.2 pg (25.0-35.0); MEAN CORPUSCULAR HGB CONC 33.8 g/dl (31.0-37.0); RBC 3.63 10^6/uL (3.5-6.1); RED CELL DISTRIBUTION WIDTH 12.7 % (11.5-14.5); WHITE BLOOD COUNT 9.9 10^3/uL (4.5-11.0)
[2018-11-02 13:14] LABS: BLOOD UREA NITROGEN 6 mg/dL (7-21); CALCIUM 9.7 mg/dL (8.4-10.5); GFR NON-AFRICAN AMERICAN > 60
--- NOTE | 2018-11-02 20:41 | PN ---
DATE: 11/02/2018 LOCATION: ICU, room 128, bed 1. This note is being dictated on behalf of Dr. Norman, whom I am covering. SUBJECTIVE: The patient had LAD stenting done. After that, the patient had bleeding from the right femoral artery and developed pelvic hematoma. The patient needed one unit of packed red blood transfusion. The patient is lying in bed comfortably without any chest pain, shortness of breath, or palpitation. PHYSICAL EXAMINATION: VITAL SIGNS: Blood pressure 131/66, respirations 18, pulse 92, temperature 97.9. HEENT: Head is normocephalic. Eyes: Pupils normal. Conjunctivae slightly pale. NECK: JVP low. Carotid equal. THORAX: AP diameter normal. CARDIOPULMONARY: S1, S2, no rub. LUNGS: Clear. ABDOMEN: Soft. The patient still has pain and slight tenderness at the pelvic hematoma site. LABORATORY DATA: WBC 9.9, hemoglobin 10.6, hematocrit 31.4, platelets 222. Sodium 139, potassium 3.8, BUN 12, creatinine 0.6. Sugar 134. AST, ALT normal. Total protein 5.6, albumin 2.9. DIAGNOSES: Status post left anterior descending coronary artery stenting, now with pelvic hematoma with no retroperitoneal extension, status post blood transfusion, one unit packed red blood cells. PLAN: Continue aspirin 81 mg daily. The patient on dopamine drip, amlodipine 5 mg daily, Plavix 75 mg daily. Clinically, cardiac status is stable. We will continue present therapy and we will follow with you. Charly Bangura MD
[2018-11-03] MEDS: Sodium Chloride 0.9% 1,000 ML IV SCH
--- NOTE | 2018-11-03 08:18 | CP.PCM.PN ---
<Jimenez Awad - Last Filed: 11/03/18 08:18> Subjective - Date & Time of Evaluation Date of Evaluation: 11/03/18 Time of Evaluation: 07:00 - Subjective Subjective: Patient seen and examined. No acute events over night. Denies fever/chills, nausea/vomiting. Reports abdominal pain has improved. States she will intermittently feel some lower abdominal pain when moving. Objective - Vital Signs/Intake and Output Vital Signs (last 24 hours): Temp Pulse Resp BP Pulse Ox 97.3 F L 79 17 124/71 96 11/03/18 04:00 11/03/18 06:00 11/03/18 04:00 11/03/18 04:00 11/03/18 04:00 Intake and Output: 11/03/18 11/03/18 06:59 18:59 Output Total 500 Balance -500 - Medications Medications: Current Medications Amlodipine Besylate (Norvasc) 5 mg PO DAILY [facility] Last Admin: 11/02/18 09:51 Dose: 5 mg Aspirin (Aspirin Chewable) 81 mg PO DAILY [facility] Last Admin: 11/02/18 09:52 Dose: 81 mg Clopidogrel Bisulfate (Plavix) 75 mg PO DAILY [facility] Last Admin: 11/02/18 09:51 Dose: 75 mg Dopamine HCl/Dextrose (Dopamine 400mg/250ml D5w) 400 mg in 250 mls @ 4.915 mls/hr IV .Q24H PRN; Protocol PRN Reason: TITRATE PER MD ORDER Morphine Sulfate (Morphine) 2 mg IVP Q4H PRN PRN Reason: Pain, severe (8-10) Last Admin: 11/02/18 22:12 Dose: 2 mg Ondansetron HCl (Zofran Inj) 4 mg IVP Q6H PRN PRN Reason: Nausea/Vomiting Zolpidem Tartrate (Ambien) 5 mg PO HS PRN; Protocol PRN Reason: Insomnia Last Admin: 11/02/18 22:12 Dose: 5 mg - Labs Labs: 11/02/18 12:10 11/02/18 12:10 PT 11.7 SECONDS (9.4-12.5) 10/31/18 23:25 INR 1.03 10/31/18 23:25 APTT 29.5 Seconds (25.1-36.5) 10/31/18 23:25 - Constitutional Appears: No Acute Distress - Head Exam Head Exam: NORMOCEPHALIC - Eye Exam Eye Exam: EOMI, Normal appearance - ENT Exam ENT Exam: Mucous Membranes Moist - Respiratory Exam Respiratory Exam: NORMAL BREATHING PATTERN - Cardiovascular Exam Cardiovascular Exam: +S1, +S2 - GI/Abdominal Exam GI & Abdominal Exam: Soft - Neurological Exam Neurological Exam: Alert, Awake, Oriented x3 - Psychiatric Exam Psychiatric exam: Normal Mood - Skin Skin Exam: Dry, Intact, Warm Assessment and Plan - Assessment and Plan (Free Text) Assessment: 67F s/p perc cardiac cath w/ placement of drug eluting stent in the LAD, complicated w/ intra-abdominal hematoma Plan: - F/u H/H - continued hemodynamic monitoring - transfuse PRN - serial abd exams - no acute surgical intervention needed at this time - discussed with Dr. Amee Cabrera PGY3 <Anurag Stubbs - Last Filed: 11/05/18 07:56> Objective - Vital Signs/Intake and Output Vital Signs (last 24 hours): Temp Pulse Resp BP Pulse Ox 99.1 F 80 19 139/76 97 11/04/18 08:59 11/04/18 09:04 11/04/18 08:00 11/04/18 09:04 11/04/18 08:00 - Labs Labs: 11/04/18 05:20 11/04/18 05:20 PT 11.7 SECONDS (9.4-12.5) 10/31/18 23:25 INR 1.03 10/31/18 23:25 APTT 29.5 Seconds (25.1-36.5) 10/31/18 23:25 Assessment and Plan - Assessment and Plan (Free Text) Plan: Patient was seen, examined and evaluated by me. I agree with resident's assessment and plan.
[2018-11-03 08:37] LABS: HEMOGLOBIN 10.4 g/dL (12.0-16.0); MEAN CELL VOLUME 87.6 fl (80.0-105.0); MEAN CORPUSCULAR HEMOGLOBIN 28.7 pg (25.0-35.0); MEAN CORPUSCULAR HGB CONC 32.7 g/dl (31.0-37.0); MEAN PLATELET VOLUME 8.9 fl (7.0-11.0); RBC 3.63 10^6/uL (3.5-6.1)
[2018-11-03 09:29] LABS: ALB/GLOB RATIO 1.2 (1.1-1.8); ALBUMIN 3.5 g/dL (3.0-4.8); ALT/SGPT 19 U/L (7-56); AST/SGOT 27 U/L (14-36); BLOOD UREA NITROGEN 11 mg/dL (7-21); CALCIUM 9.6 mg/dL (8.4-10.5); GFR NON-AFRICAN AMERICAN > 60
--- NOTE | 2018-11-03 14:41 | PN ---
DATE: 11/03/2018 SUBJECTIVE: The patient is resting in bed, O2 via nasal cannula. No complaints of shortness of breath, cough, wheezing, chest congestion or chest pain. She does continue to complain of lower abdominal discomfort and complains of dysuria and dysuria and increased abdominal discomfort when she stands or moves aggressively. No fever, chills. PHYSICAL EXAMINATION: VITAL SIGNS: Note that her temperature is 97.3, her pulse is 79, respirations of 17 and BP is 124/71. SKIN: Warm and dry. HEENT: Head atraumatic, normocephalic. Eyes reactive to light. Ear, nose and throat seem to be within normal limits. NECK: Her neck is supple. No JVD. No thyroid enlargement. No lymph nodes. HEART: Has regular rate and rhythm. Normal S1, S2. LUNGS: Reveal good breath sounds bilaterally. ABDOMEN: Soft. Tender to palpation in the lower region on decreased bowel sounds. GENITALIA AND RECTAL: Deferred. MUSCULOSKELETAL: No joint deformities. EXTREMITIES: Reveal trace lower extremity edema. NEUROLOGIC: Neurologically, she seemed to be grossly intact. LABORATORY DATA: At this point laboratories are pending. Last hemoglobin was noted to be 10.6. IMPRESSION: As far as my impression, this patient has coronary artery disease with left anterior descending and a stent was placed. The patient has postprocedure pelvic as well as intra-abdominal hematoma. She has a history of hypertension, diabetes and anemia. PLAN: As far as our plan, we will continue with the monitoring of her hemoglobin. The patient is on aspirin as well as morphine, Norvasc, Plavix and dopamine. We will continue to treat aggressively along with the other consultants and the primary care doctor. Chandrakant Orosco MD
--- NOTE | 2018-11-03 18:14 | PN ---
DATE: 11/03/2018 LOCATION: The patient is in ICU 128, bed 1. This progress note is being dictated on behalf of Dr. Norman, whom I am covering. SUBJECTIVE: The patient had LAD stenting. Following that, the patient had bleeding from the right femoral artery and developed pelvic hematoma with pain. The patient needed 1 unit of packed red blood cell transfusion. The patient has no chest pain, shortness of breath and palpitation. The patient is sitting in a chair comfortably without any cardiac symptoms. PHYSICAL EXAMINATION: VITAL SIGNS: Blood pressure 126/99, respirations 18, pulse 80. The patient is afebrile. HEENT: Head is normocephalic. LUNGS: Clear. CARDIOVASCULAR: S1, S2. ABDOMEN: On pelvic area, the patient has some tenderness in the pelvic area. Bowel sound normal. EXTREMITIES: No clubbing. No cyanosis. LABORATORY DATA: Shows WBC 9.0, hemoglobin 10.4, hematocrit 31.8, platelets 214. Sodium 139, potassium 3.9, BUN 11, creatinine 0.5, random sugar 112. Calcium, phosphorus, magnesium, AST, ALT are normal. Alkaline phosphatase is normal. Total protein and albumin are normal. DIAGNOSES: Status post left anterior descending coronary artery stenting, now with pelvic hematoma with no evidence of retroperitoneal extension, status post blood transfusion, 1 unit of packed red blood cell. PLAN: Clinically, the patient's cardiac status stable. We will continue Plavix 75 daily, aspirin 81 mg daily, amlodipine 5 mg daily. From tomorrow, Dr. Norman will be following the patient. Charly Bangura MD
[2018-11-04 06:17] LABS: BASO # 0.04 K/mm3 (0.0-2.0); BASO % 0.5 % (0.0-3.0); EOS # 0.3 (0.0-0.7); EOS % 4.1 % (1.5-5.0); GRAN # 4.66 (1.4-6.5); GRAN % 57.9 % (50.0-68.0); HEMOGLOBIN 9.8 g/dL (12.0-16.0); LYMPH # 2.3 (1.2-3.4); MEAN CELL VOLUME 87.9 fl (80.0-105.0); MEAN PLATELET VOLUME 9.1 fl (7.0-11.0); MONO # 0.8 (0.1-0.6); MONO % 9.5 % (1.0-6.0); RBC 3.38 10^6/uL (3.5-6.1)
[2018-11-04 06:42] LABS: ALBUMIN 3.3 g/dL (3.0-4.8); ALT/SGPT 26 U/L (7-56); AST/SGOT 34 U/L (14-36); BLOOD UREA NITROGEN 13 mg/dL (7-21); CALCIUM 9.4 mg/dL (8.4-10.5); GFR NON-AFRICAN AMERICAN > 60
--- NOTE | 2018-11-04 07:44 | CP.PCM.PN ---
<Brian Jasso - Last Filed: 11/04/18 16:45> Subjective - Date & Time of Evaluation Date of Evaluation: 11/04/18 Time of Evaluation: 07:47 - Subjective Subjective: PGY-1 General Surgery Progress Note for Dr. Stubbs Patient seen and examined at bedside. No acute events overnight per nursing. Patient still having some intermittent abdominal pain, but overall states improving. Patient denies nausea, vomiting, diarrhea, chest pain, headache, shortness of breath. Objective - Vital Signs/Intake and Output Vital Signs (last 24 hours): Temp Pulse Resp BP Pulse Ox 99.0 F 101 H 22 122/65 93 L 11/04/18 04:00 11/04/18 06:00 11/04/18 03:00 11/04/18 03:00 11/04/18 03:00 Intake and Output: 11/04/18 11/04/18 06:59 18:59 Intake Total 480 Output Total 800 Balance -320 - Medications Medications: Current Medications Amlodipine Besylate (Norvasc) 5 mg PO DAILY [facility] Last Admin: 11/03/18 09:12 Dose: 5 mg Aspirin (Aspirin Chewable) 81 mg PO DAILY [facility] Last Admin: 11/03/18 09:12 Dose: 81 mg Clopidogrel Bisulfate (Plavix) 75 mg PO DAILY [facility] Last Admin: 11/03/18 09:12 Dose: 75 mg Dopamine HCl/Dextrose (Dopamine 400mg/250ml D5w) 400 mg in 250 mls @ 4.915 mls/hr IV .Q24H PRN; Protocol PRN Reason: TITRATE PER MD ORDER Morphine Sulfate (Morphine) 2 mg IVP Q4H PRN PRN Reason: Pain, severe (8-10) Last Admin: 11/02/18 22:12 Dose: 2 mg Ondansetron HCl (Zofran Inj) 4 mg IVP Q6H PRN PRN Reason: Nausea/Vomiting Zolpidem Tartrate (Ambien) 5 mg PO HS PRN; Protocol PRN Reason: Insomnia Last Admin: 11/03/18 20:50 Dose: 5 mg - Labs Labs: 11/04/18 05:20 11/04/18 05:20 PT 11.7 SECONDS (9.4-12.5) 10/31/18 23:25 INR 1.03 10/31/18 23:25 APTT 29.5 Seconds (25.1-36.5) 10/31/18 23:25 - Constitutional Appears: Non-toxic, No Acute Distress - Head Exam Head Exam: ATRAUMATIC, NORMAL INSPECTION - Eye Exam Eye Exam: EOMI - ENT Exam ENT Exam: Mucous Membranes Moist - Respiratory Exam Respiratory Exam: Clear to Ausculation Bilateral, NORMAL BREATHING PATTERN. absent: Rhonchi, Wheezes - Cardiovascular Exam Cardiovascular Exam: REGULAR RHYTHM, +S1, +S2 - GI/Abdominal Exam GI & Abdominal Exam: Soft, Tenderness (RLQ tenderness) - Extremities Exam Extremities Exam: absent: Pedal Edema, Tenderness Additional comments: Palpable DP and PT pulses - Neurological Exam Neurological Exam: Alert, Awake, Oriented x3 - Psychiatric Exam Psychiatric exam: Normal Affect, Normal Mood - Skin Skin Exam: Dry, Intact, Normal Color, Warm Assessment and Plan - Assessment and Plan (Free Text) Assessment: 67 year old female s/p PCI with placement of drug-eludting stent in LAD, complicated by intrabdominal bleed - Hemodynamically stable, HgB 9.8 - Continued hemodynamic monitoring recommended - No acute surgical intervention at this time - Surgery signing off on this case Brian Jasso, PGY-1 <Anurag Stubbs - Last Filed: 11/05/18 07:51> Objective - Vital Signs/Intake and Output Vital Signs (last 24 hours): Temp Pulse Resp BP Pulse Ox 99.1 F 80 19 139/76 97 11/04/18 08:59 11/04/18 09:04 11/04/18 08:00 11/04/18 09:04 11/04/18 08:00 - Labs Labs: 11/04/18 05:20 11/04/18 05:20 PT 11.7 SECONDS (9.4-12.5) 10/31/18 23:25 INR 1.03 10/31/18 23:25 APTT 29.5 Seconds (25.1-36.5) 10/31/18 23:25 Assessment and Plan - Assessment and Plan (Free Text) Assessment: Patient was seen, examined and evaluated by me. I agree with resident's assessment and plan.
[2018-11-04 08:59] VITALS: RESP 19; O2SAT 97
[2018-11-04 09:00] VITALS: TEMP 99.1
[2018-11-04 09:05] VITALS: BP 139/76; PULSE 80
--- NOTE | 2018-11-04 10:10 | PN ---
DATE: 11/04/2018 SUBJECTIVE: The patient is ambulating without symptoms. No chest pain, no more abdominal pain. PHYSICAL EXAMINATION: VITAL SIGNS: Blood pressure 122/65, heart rate is in the 90s. NECK: Negative JVD. LUNGS: Without rales. HEART: Reveals S1, S2. EXTREMITIES: Without edema. The right groin site is stable. LABORATORY DATA: Hemoglobin is 9.8 which is unchanged from her previous. Chemistries, BUN and creatinine are unremarkable. ASSESSMENT: 1. Stable post percutaneous transluminal coronary angioplasty and stent of the left anterior descending with a drug-eluting stent. 2. Two-vessel coronary artery disease with a critical left anterior descending lesion as well as a 50% stenoses in the mid right coronary artery. 3. Status post right groin bleed post procedure. 4. Stabilized with manual compression as well as blood transfusions. 5. Diabetes mellitus. 6. Hypertension. 7. Hypercholesterolemia. PLAN: Given these findings, the patient can be discharged today. She will need to take aspirin and Plavix as well as Lipitor which has been prescribed for her. In addition, the patient has requested Ambien 5 mg to help her sleep. I have instructed for her to see Dr. Lopez to follow up this week for further followup care. Dorian Norman MD
== END 2018-11-04 10:41 | disposition home or self-care (01) | DRG 247 ==
LOC: CATH 09:05 → 2RSO 11:33 → CATH 11:33 → ICU 15:00
PROVIDERS: ADMIT Internal Medicine Cardiovascular Disease; ATTEND Internal Medicine Cardiovascular Disease
PROC: 027034Z Dilation of Coronary Artery, One Artery with Drug-eluting Intraluminal Device, Percutaneous Approach (ICD-10-PCS; principal; 2018-10-31)
PROC: 4A023N7 Measurement of Cardiac Sampling and Pressure, Left Heart, Percutaneous Approach (ICD-10-PCS; 2018-10-31)
PROC: B2111ZZ Fluoroscopy of Multiple Coronary Arteries using Low Osmolar Contrast (ICD-10-PCS; 2018-10-31)
PROC: 30233N1 Transfusion of Nonautologous Red Blood Cells into Peripheral Vein, Percutaneous Approach (ICD-10-PCS; 2018-10-31)
DX: I25.10 Atherosclerotic heart disease of native coronary artery without angina pectoris (principal); I97.630 Postprocedural hematoma of a circulatory system organ or structure following a cardiac catheterization; S36.92XA Contusion of unspecified intra-abdominal organ, initial encounter; E11.9 Type 2 diabetes mellitus without complications; E78.00 Pure hypercholesterolemia, unspecified; I10 Essential (primary) hypertension; Z79.82 Long term (current) use of aspirin; Z79.899 Other long term (current) drug therapy; Z82.49 Family history of ischemic heart disease and other diseases of the circulatory system; Z90.710 Acquired absence of both cervix and uterus; R00.1 Bradycardia, unspecified; I95.9 Hypotension, unspecified; N94.89 Other specified conditions associated with female genital organs and menstrual cycle